=== PATIENT | male | born 1950 | race Caucasian/White ===

== ENCOUNTER 2019-05-18 01:16 | Outpatient (CLI) | payer BC, MEDICARE, SELFPAY ==
--- NOTE | 2019-05-18 14:20 | DI.US_ITS ---
EXAM: US UPPER EXTREMITY VENOUS LT CLINICAL HISTORY: LOCALIZED SWELLING OF LT ARM, R22.32 TECHNIQUE: Ultrasound performed using standard protocol. COMPARISON: SCROTUM US from 10/21/2017 FINDINGS: Ultrasound examination of the deep venous system of the left upper extremity was performed according to the usual protocol. Deep veins appear freely compressible throughout. There is no visible thromb us to the level of the subclavian vein. No superficial thrombus seen. IMPRESSION: negative venous ultrasound left upper extremity.
== END 2019-05-18 01:36 ==
PROVIDERS: PCP Family Medicine; Visit Provider Family Medicine
DX: R22.32 Localized swelling, mass and lump, left upper limb (principal)
CPT/HCPCS: 93971

== ENCOUNTER 2019-08-06 12:33 | Outpatient (REF) | payer MEDICARE, BC, SELFPAY ==
[2019-08-06 13:08] LABS: Anion Gap 9.4 mmol/L (3-11); BUN 23 mg/dL (7-18); CO2 25.6 mmol/L (21.0-32.0); CREATININE 0.96 mg/dL (0.70-1.30); Calcium 8.9 mg/dL (8.5-10.1); Chloride 107 mmol/L (98-107); Glucose 94 mg/dL (74-106); Potassium 4.1 mmol/L (3.5-5.1); Sodium 142 mmol/L (136-145)
[2019-08-07 09:30] LABS: PSA, Screening 0.5 ng/mL (0.0-4.5)
== END 2019-08-06 12:53 ==
LOC: NCHCN 12:33
PROVIDERS: PCP Family Medicine; Visit Provider Family Medicine
DX: N40.0 Benign prostatic hyperplasia without lower urinary tract symptoms (principal); Z12.5 Encounter for screening for malignant neoplasm of prostate; Z13.1 Encounter for screening for diabetes mellitus; I10 Essential (primary) hypertension
CPT/HCPCS: 80048; 84153

== ENCOUNTER 2020-01-10 08:45 | Outpatient (CLI) | payer MEDICARE, BC, SELFPAY ==
--- NOTE | 2020-01-10 09:00 | DI.RAD_ITS ---
EXAM: XR HEEL LT OS CALCIS CLINICAL HISTORY: eval L heel pain. TECHNIQUE: 2D digital imaging was performed. COMPARISON: CR RIGHT FOOT COMPLETE from 06/22/2017 FINDINGS: There is spurring at the Achilles insertion on the calcaneus and adjacent soft tissue swelling. No b leilani erosions are seen. IMPRESSION: Spurring and soft tissue swelling at the distal Achilles tendon.. DATA REPOSITORY: RADIATION DOSE DELIVERED:
== END 2020-01-10 09:05 ==
PROVIDERS: PCP Family Medicine; Referring Provider Family Medicine; Visit Provider Student in an Organized Health Care Education/Training Program
DX: M79.672 Pain in left foot (principal); M79.89 Other specified soft tissue disorders; M65.28 Calcific tendinitis, other site
CPT/HCPCS: 99203; 99214; 73650

== ENCOUNTER 2020-02-23 19:53 | Emergency (ER) | payer MEDICARE, BC, SELFPAY ==
[2020-02-23 19:57] VITALS: BP 118/53; PULSE 45; RESP 16; TEMP 36.4; O2SAT 96
--- NOTE | 2020-02-23 20:05 | ED.GENADUL_ITS ---
Discharge Plan Disposition Patient Disposition: HOME Condition: Stable Discharge Details Chief Complaint: Orthopedic Clinical Impression: Contusion of foot, Ankle sprain Primary Care Provider: Teresa Menchaca ED Provider: Devaughn Brar Home Meds and New Rx's Prescriptions: Continued Centrum Silver 1 EACH tablet 1 tab PO DAILY RF: 0 lisinopril 10 mg tablet 5 mg PO DAILY RF: 0 Discharge Instructions Instructions: Ankle Sprain (ED), Foot Contusion (ED) Additional Instructions: X-rays are unremarkable. No signs of infection. As we discussed, recommend elevation, cool compresses, resting, elevation. Please watch for new or worsening symptoms and return to the ER for any concerns. Medical Decision Making This is a pleasant 69-year-old gentleman who fell from a ladder 9 days ago. Purely given the duration of his symptoms, acute bony abnormality I feel is less likely. Likely he denies any other injury such as striking his head, neck pain, chest pain, shortness of breath, back pain abdominal pain, numbness, tingling, weakness. He was asymptomatic prior to the fall. Had this been present without trauma I would certainly have higher suspicion for DVT but in his case this occurred status post trauma. He has not been resting, elevating, using cool compresses or compression stockings. Certainly appears to be more swelling and edema secondary to trauma. Negative Homans sign. Neuro, vascular, tendon intact. Of note his pulse was in the 50s, upon prior evaluations he appears to typically have bradycardia. The mild erythema-ecchymosis does not reveal any obvious signs of infection. Patient is afebrile. Process with patient. He has no additional questions or concerns and is comfortable having x-ray of ankle and foot. X-ray of ankle and foot obtained and read as no bony abnormality per virtual radiology. Soft tissue swelling present. Discussed findings with patient. He is relieved and has no additional questions or concerns. Denies any splint or crutches. We discussed signs and symptoms of infection and discussed the importance of reevaluation whether through his primary care provider or returning here to the ER. Medical Records Medical records reviewed: Yes I reviewed the patient's medical records. HPI General Mode of arrival: ambulatory . Date/Time Provider Initiated Documentation: 02/23/20 20:02 . Limitations to Documentation: no limitations . Information obtained by: patient . HPI Narrative: This is a 69-year-old gentleman with history of hypertension, presenting to the ER reporting that he fell from a ladder 9 days ago injuring his right lower leg. Fortunately he denies any other injury. He states that his head was approximately 10 feet off the ground, the ladder began to slide, he was able to make it down a couple of rungs and and the ladder fell to the ground. He states that the ladder took the brunt of the fall. He denies striking his head, loss of consciousness, neck pain, chest pain, shortness of breath, abdominal pain, nausea, vomiting, numbness, tingling, weakness. He reports that the pain is in both his foot and ankle, there is swelling and it is discolored. He denies any warmth or fever. Along the medial aspect he did sustain a small abrasion, but he denies any drainage from this. He is not anticoagulated. Related Data Home Medications Medication Instructions Recorded Confirmed Centrum Silver 1 tab PO DAILY 10/15/13 02/23/20 lisinopril 10 mg tablet 5 mg PO DAILY tab 01/10/20 02/23/20 Allergies Allergy/AdvReac Type Severity Reaction Status Date / Time No Known Allergies Allergy Unverified 02/23/20 20:00 General Stated Complaint: Orthopedic NISSA: 4 Review of Systems All systems reviewed & are unremarkable except as noted in HPI and below Constitutional Constitutional: Denies fever(s), Denies headache(s) and Denies weakness ENT Ears, Nose, Mouth, and Throat: Denies headache(s) and Denies neck pain Musculoskeletal Musculoskeletal: Denies neck pain, Denies numbness and Denies tingling Neurologic Neurologic: Denies headache(s), Denies numbness, Denies tingling and Denies weakness [facility] Social History Smoking/Tobacco Use Status: Never Alcohol Intake: current Alcohol Intake frequency: holidays/special occasions only Drug use: Never Do you feel safe at home: Yes Do you feel safe in your relationship?: Yes Exam Const General: cooperative, healthy appearing, comfortable and no acute distress Orientation: alert, awake and oriented x3 HENMT Head: normal to inspection, normocephalic and atraumatic Mouth: moist mucous membranes Eyes Conjunctivae: conjunctivae normal Sclera: sclerae normal Neck Neck: normal visual inspection, full ROM, trachea midline, supple and nontender Chest Chest: abnormal palpation of chest wall Resp Effort & Inspection: normal respiratory effort and able to speak in complete sentences Cardio Rate: bradycardic (56) Rhythm: regular rhythm GI Palpation: soft and nontender Back/Spine/Pelvis Back: No back tenderness Skin General skin exam: no rashes or lesions noted Neuro General: patient alert, patient awake, patient oriented x3, moves all extremities and no focal motor deficits Gait: antalgic Motor: muscle tone normal throughout and strength 5/5 throughout Sensory Exam: no sensory deficits noted Extrem Other: Right ankle and foot with diffuse mild swelling, discomfort, mild erythema-ecchymosis. Along the medial aspect there is a small abrasion which is scabbed over, no signs of infection. There is no warmth, drainage, signs of secondary infection. No lymphangitic streaking. Negative Homans sign. There is diffuse discomfort across the ankle and foot but there is no bony point tenderness. Normal capillary refill and normal dorsalis pedal pulse. There is distinct ecchymosis over the third toe however no point discomfort. Neuro, vascular, tendon intact Psych Appearance: grossly normal Mental Status: mental status grossly normal Course Vital Signs Vital signs: Vital Signs Temperature 36.4 C L 02/23/20 19:57 Pulse 45 L 02/23/20 19:57 Respiratory Rate 16 02/23/20 19:57 Blood Pressure 118/53 L 02/23/20 19:57 Pulse Oximetry 96 02/23/20 19:57 Temperature 36.4 C L 02/23/20 19:57 Temperature Source Temporal Artery Scan 02/23/20 19:57 Pulse 45 L 02/23/20 19:57 Respiratory Rate 16 02/23/20 19:57 Respiratory Effort Non-Labored 02/23/20 20:02 Blood Pressure 118/53 L 02/23/20 19:57 Blood Pressure Position Sitting 02/23/20 19:57 Pulse Oximetry 96 02/23/20 19:57 Oxygen Delivery Method Room Air 02/23/20 19:57 Oxygen Flow Rate 0 02/23/20 19:57 Pain Level 6 02/23/20 19:57
--- NOTE | 2020-02-23 20:15 | DI.RAD_ITS ---
EXAM: XR ANKLE RT COMPLETE CLINICAL HISTORY: fall off ladder 9 days ago TECHNIQUE: COMPARISON: CR XR HEEL LT OS CALCIS from 01/10/2020 CR,XR XR FOOT RT COMPLETE from 02/23/2020 FINDINGS: Three views of the ankle three views of the foot were obtained. There is prior surgical procedure at the Achilles attachment the calcaneus with a an anchor screw in place. There are mild degenerative changes involving the joints of the ankle. The ankle mortise is well maintained. There is no eviden ce of a fracture involving the ankle or foot. IMPRESSION:
--- NOTE | 2020-02-23 20:45 | DI.VRAD_ITS ---
PROCEDURE INFORMATION: Exam: XR Right Ankle Exam date and time: 02/23/2020 8:36 PM Age: 69 years old Clinical indication: Other: Fall off ladder +9 days ago TECHNIQUE: Imaging protocol: XR Right ankle. Views: 3 or more views. COMPARISON: CR RIGHT FOOT COMPLETE 06/22/2017 8:56 AM FINDINGS: Bones/joints: No fracture. No dislocation. Soft tissues: Soft tissue swelling at the ankle. Previous Achilles tendon reattachment surgery. IMPRESSION: 1. Soft tissue swelling. 2. No fracture or dislocation. 3. Previous Achilles tendon reattachment. Dictated and Authenticated by: Demetrius Lema MD. Ordering:HANDY Cantor MD
--- NOTE | 2020-02-23 20:46 | DI.VRAD_ITS ---
PROCEDURE INFORMATION: Exam: XR Right Foot Complete Exam date and time: 02/23/2020 8:37 PM Age: 69 years old Clinical indication: Other: Fall off ladder +9 days ago TECHNIQUE: Imaging protocol: XR Right foot. Views: 3 or more views. COMPARISON: CR RIGHT FOOT COMPLETE 06/22/2017 8:56 AM FINDINGS: Bones/joints: No fracture or dislocation. Soft tissues: Soft tissue swelling of the posterior foot and ankle region. No soft tissue foreign body. Previous Achilles tendon reattachment surgery. IMPRESSION: 1. Soft tissue swelling. 2. No acute fracture or dislocation. Dictated and Authenticated by: Demetrius Lema MD. Ordering:HANDY Cantor MD
[2020-02-23 21:10] VITALS: BP 99/68; PULSE 49; RESP 16; O2SAT 96
== END 2020-02-23 21:10 | disposition home or self-care (01) ==
PROVIDERS: Emergency Provider Physician Assistant; PCP Family Medicine
DX: S90.31XA Contusion of right foot, initial encounter (principal); S93.401A Sprain of unspecified ligament of right ankle, initial encounter; W11.XXXA Fall on and from ladder, initial encounter; I10 Essential (primary) hypertension
CPT/HCPCS: 99284; 73610; 73630; 99283

== ENCOUNTER → 2020-09-08 07:56 | Outpatient (BNVA) | payer MEDICARE, BC, SELFPAY | PROVIDERS: PCP Family Medicine; Referring Provider Family Medicine; Visit Provider Student in an Organized Health Care Education/Training Program | DX: M65.28 Calcific tendinitis, other site (principal) | CPT/HCPCS: 99214 ==

== ENCOUNTER 2020-09-23 06:17 | Day surgery (SDC) | payer MEDICARE, BC, SELFPAY ==
[2020-09-23 06:33] VITALS: BP 141/91; PULSE 51; RESP 16; TEMP 36.3; O2SAT 97
[2020-09-23] MEDS: Lactated Ringers 1,000 ML 80 ML IV (07:13)
--- NOTE | 2020-09-23 07:23 | HPE_ITS ---
Date of service: 09/23/20 Time of Service: 07:23 Assessment and Plan Assessment and plan (1) Calcific Achilles tendinitis of left lower extremity: Status: Acute Assessment and plan: Dell is a 69-year-old who has calcific, chronic, insertional tendinitis of the left Achilles. He has failed conservative options and now desires to proceed with surgical intervention. I reviewed the risk with him in the office in detail he desires to proceed. He is a no changes medical history. His COVID-19 test is negative. We'll proceed with surgical debridement with possible Achilles reattachment today. All questions were answered. History of Present Illness Narrative: Dell is a 69-year-old who has longstanding chronic insertional tend initis with calcific disease about the left heel. He has failed conservative options and now desires to proceed with surgery intervention. Please see the office note for complete details of his clinical history as well as the options that were discussed in detail with Dell. He denies any significant changes to his health. He has no chest pain or shortness of breath. His COVID-19 test is negative. Review of Systems All systems reviewed & are unremarkable except as noted in HPI and below PFSH Medical History Calcific Achilles tendinitis of right lower extremity s/p surgical debridement Hypertension Spermatocele of epididymis, multiple (12/20/17) Urinary frequency Being tx with tamsulosin Surgical History Achilles bursitis or tendinitis Right repaired. History of arthroscopic knee surgery Both knees. Social History Smoking/Tobacco Use Status: Never Smoking risk assessment performed?: Yes Alcohol Intake: current Alcohol Intake frequency: a few times a week Alcohol type: beer, wine and hard liquor Drug use: Never Substance use type: does not use Do you feel safe at home: Yes Do you feel safe in your relationship?: Yes Meds Home Medications and Allergies Allergies Allergy/AdvReac Type Severity Reaction Status Date / Time No Known Allergies Allergy Unverified 09/22/20 09:08 Home Medications Medication Instructions Recorded Confirmed Type Centrum Silver 1 tab PO DAILY 10/15/13 09/23/20 History lisinopril 10 mg tablet 5 mg PO DAILY tab 01/10/20 09/23/20 History tamsulosin 0.4 mg PO DAILY 09/22/20 09/23/20 History Exam Const General: cooperative Nutritional Appearance: average body habitus Resp Effort & Inspection: normal respiratory effort Auscultation: clear to auscultation bilaterally Cardio Rate: bradycardic Rhythm: regular rhythm Results Last Vital Signs Temp 36.3 C L 09/23/20 06:33 Pulse 51 L 09/23/20 06:33 Resp 16 09/23/20 06:33 BP 141/91 H 09/23/20 06:33 Pulse Ox 97 09/23/20 06:33
--- NOTE | 2020-09-23 07:45 | W.PM.DSUDISC ---
Documented by User: JAY Flowers 09/23/20 07:50 Discharge Plan Disposition Patient Disposition: HOME Condition: Good Discharge Details Reason For Visit: Debridement Left Heel, Calcific Tendonitis Attending Provider: Ric Aguila Primary Care Provider: Teresa Menchaca Home Meds and New Rx's Prescriptions: New hydrocodone-acetaminophen 5-325 mg tablet 1 tab PO Q6H PRNQty: 5 RF: 0 aspirin 81 mg tablet,delayed release (DR/EC) 81 mg PO BID Qty: 60 RF: 0 acetaminophen [Tylenol Extra Strength] 500 mg tablet 500 mg PO Q6H PRNQty: 90 RF: 0 ibuprofen 600 mg tablet 600 mg PO TID Qty: 90 RF: 0 Continued Centrum Silver 1 EACH tablet 1 tab PO DAILY RF: 0 lisinopril 10 mg tablet 5 mg PO DAILY RF: 0 tamsulosin 0.4 mg Capsule 0.4 mg PO DAILY RF: 0 Discharge Instructions Additional Instructions: Ankle Achilles Debridement Discharge Instructions Activity: You are NON WEIGHT BEARING. You should keep the leg elevated as much as possible. You may wiggle your toes and move your hip and knee. Dressings: You should keep your splint clean and dry. Do NOT get wet or dirty. If you have issues with your splint, please call the office at [phone] or the hospital after hours. Medications: - You should take Tylenol and Ibuprofen around the clock for baseline pain. - You have been prescribed a stronger narcotic, Hydrocodone, for breakthrough pain. - You should take a Baby Aspirin (81mg) twice a day for blood clot prevention. Follow-up: 2 weeks Referrals: Ric Aguila MD [ [facility] STAFF PHYSICIAN] - Equipment/Supplies: Non-Weight Bearing Crutches Activity:: Elevate Remove Dressings/Wound Care:: Do Not Remove Shower/Bathe:: Cover Diet:: As Tolerated Discharge Orders Discharge Orders: Discharge Order (Routine); Ordered 09/23/20 Ordered By: Oliva Piedra DS: Diagnosis Discharge Diagnosis (1) Calcific Achilles tendinitis of left lower extremity: Status: Acute Documented by User: Ric Aguila MD 09/23/20 09:38 Discharge Plan Disposition Patient Disposition: HOME Condition: Good Discharge Details Reason For Visit: Debridement Left Heel, Calcific Tendonitis Attending Provider: Ric Aguila Primary Care Provider: Teresa Menchaca Home Meds and New Rx's Prescriptions: New hydrocodone-acetaminophen 5-325 mg tablet 1 tab PO Q6H PRNQty: 5 RF: 0 aspirin 81 mg tablet,delayed release (DR/EC) 81 mg PO BID Qty: 60 RF: 0 acetaminophen [Tylenol Extra Strength] 500 mg tablet 500 mg PO Q6H PRNQty: 90 RF: 0 ibuprofen 600 mg tablet 600 mg PO TID Qty: 90 RF: 0 Continued Centrum Silver 1 EACH tablet 1 tab PO DAILY RF: 0 lisinopril 10 mg tablet 5 mg PO DAILY RF: 0 tamsulosin 0.4 mg Capsule 0.4 mg PO DAILY RF: 0 Discharge Instructions Additional Instructions: Ankle Achilles Debridement Discharge Instructions Activity: You are NON WEIGHT BEARING. You should keep the leg elevated as much as possible. You may wiggle your toes and move your hip and knee. Dressings: You should keep your splint clean and dry. Do NOT get wet or dirty. If you have issues with your splint, please call the office at [phone] or the hospital after hours. Medications: - You should take Tylenol and Ibuprofen around the clock for baseline pain. - You have been prescribed a stronger narcotic, Hydrocodone, for breakthrough pain. - You should take a Baby Aspirin (81mg) twice a day for blood clot prevention. Follow-up: 2 weeks Referrals: Ric Aguila MD [ [facility] STAFF PHYSICIAN] - Equipment/Supplies: Non-Weight Bearing Crutches Activity:: Elevate Remove Dressings/Wound Care:: Do Not Remove Shower/Bathe:: Cover Diet:: As Tolerated Discharge Orders Discharge Orders: Discharge Order (Routine); Ordered 09/23/20 Ordered By: Oliva Piedra
[2020-09-23] MEDS: ceFAZolin 2 GM/50 ML BAG IVPB (08:01)
[2020-09-23] MEDS: Bupivacaine 0.25% Pres-Free 30 ML VIAL (08:25)
[2020-09-23 09:40] VITALS: BP 115/61; PULSE 46; RESP 17; TEMP 36.3; O2SAT 99
[2020-09-23 09:45] VITALS: BP 112/67; PULSE 47; RESP 14; TEMP 36.3; O2SAT 98
[2020-09-23 09:50] VITALS: BP 117/72; PULSE 49; RESP 16; TEMP 36.3; O2SAT 98
[2020-09-23 10:05] VITALS: BP 125/56; PULSE 48; RESP 15; TEMP 36.1; O2SAT 98
[2020-09-23] MEDS: oxyCODONE 5 MG TAB PO (10:46)
[2020-09-23 10:49] VITALS: BP 120/78; PULSE 46; RESP 16; TEMP 36.1; O2SAT 99
--- NOTE | 2020-09-24 06:47 | W.PM.OP ---
Date of service: 09/23/20 Time of Service: 09:47 Operative Note Operative Note DATE OF PROCEDURE: 09/23/20 PRE-OP DIAGNOSIS: Insertional Calcific Tendinitis of Achilles Tendon POST-OP DIAGNOSIS: same PROCEDURE: Left Achilles Tendon debridement and calcaneus ostectomy with Apollo resection and reattachment of Achilles to the calcaneus. SURGEON: Ric Aguila EVENT PLANNING INTERN: Oliva Piedra ANESTHESIA TYPE: General LMA/ETT Refer to Anesthesia Record ESTIMATED BLOOD LOSS: 20 PATHOLOGY: none sent TOURNIQUET TIME: 0 COMPLICATIONS: None Patient was transported to: PACU Indications: Dell is a 69 year old male who has had persistent pain about the heel. Clinical evaluation and x-rays demonstrated clear calcific tendinitis of the Achilles insertion. Dell has failed a host of conservative options but continues to have pain and difficulty with shoe wear. Therefore, I offered operative intervention in the form of Achilles debridement, bony prominence resection, and Achilles tendon repair as indicated. I reviewed the risk of the procedure to include bleeding, infection, pain, stiffness, damage to nerves and vessels, weakness, Achilles rerupture or retear, wound healing complications. Despite these risk,he elected to proceed. Findings: There were notable calcific prominence of the calcaneal tuberosity which were resected and the calcaneus smooth and Achilles repaired back down to the calcaneus. Procedure Description: Dell was greeted in the preoperative holding area. Identity was confirmed the correct side was identified and marked. Consent was reviewed the patient and signed. History of physical was updated. He was taken to the operating room. A general anesthetic was administered and then the patient was placed into the prone position. Chest rolls were placed to well-padded the chest and allow for chest expansion. The arms were placed in the 9090 position with all bony prominences well-padded. There was gel pad placed underneath the knees and a prone ramp was placed underneath the operative leg. No tourniquet was used. Prophylactic antibiotics in the form of cefazolin were given. A timeout was performed for safe surgery. The proposed surgical site was then injected with 0.25% bupivacaine. A midline incision was then made overlying the Achilles tendon and its insertion on the calcaneus. This incision was taken down all the way to the peritenon of the Achilles tendon and its insertion on the calcaneus. Full-thickness flaps were then elevated medially and laterally to better expose Achilles tendon and its insertion. A midline incision was then made within the Achilles tendon. The tendon was elevated off of the calcaneus medially and laterally leaving some bands at the far reaches for later tensioning of the Achilles tendon. Calcific deposits from in the tendon were then removed sharply. Prominences over the calcaneal tuberosity were also removed with a rongeur. I took a chisel to then resect any Apollo deformity. This was checked by dorsiflexing the foot and inspecting for any impingement of the calcaneal prominence onto the Achilles tendon I also used a chisel to chamfer the medial lateral prominences of the calcaneal tuberosity as well. Once this was completed I then inspected the calcaneal insertion for any remnant sharp prominences or calcifications. A rasp was also used to smooth this down fully until there is no prominence projecting either posteriorly, medially, laterally. I made sure that the left attachments of the Achilles tendon to help guide the repair. I then placed a single 5.0 mm Mitek Fastin anchor into the superior margin of the calcaneal tuberosity. I placed a locking Krak?w type suture into each side of the Achilles tendon with 1 limb of the suture from the anchor. The extra limb of the suture was then passed through the tendon wants to serve as a stephanie. Once these both were passed I was able to shuttle the tendon back down to the bone by pulling on the free limb of the suture. The sutures were then tied which reapproximated the Achilles tendon down to the tuberosity quite nicely. I also took a #2 FiberWire to reapproximate the tendon split in the Achilles through his entire length. Using the tails of the suture as well as the remnant tails from the previously tied sutures, I incorporated these into a DermaMedicstec Healix 4.75 mm knotless anchor. This reapproximated the tendon over the entire footprint of the calcaneus. The suture limbs were then cut. The periphery of the Achilles tendon slit was inspected and any residual split of the tendon was reapproximated. The wounds and thoroughly irrigated. The deep tissues were anesthetized with 0.2% bupivacaine. The deep tissue was closed with 3-0 Vicryl followed by a 4-0 nylon. Xerofradha, 4 x 4, ABD, web roll was applied to the foot in a short leg splint was placed. The patient was then placed into the supine position. There is no notable complications from the prone positioning of the surgery. Dell was in transition back to the hospital stretcher in a stable condition. The procedure was tolerated well and the patient was transferred back to the PACU in stable condition.
== END 2020-09-23 12:00 | disposition home or self-care (01) ==
PROVIDERS: PCP Family Medicine; Visit Provider Student in an Organized Health Care Education/Training Program
PROC: (CPT 27654; principal; 2020-09-23 07:45)
PROC: (CPT 27650; 2020-09-23 07:45)
DX: M76.61 Achilles tendinitis, right leg (principal); I10 Essential (primary) hypertension; R35.0 Frequency of micturition
CPT/HCPCS: 27654; 27650; C1713; NC; E0114; J0690; J1100; J1885; J2001; J2405; J2704

== ENCOUNTER → 2020-10-06 08:58 | Outpatient (BNVA) | payer MEDICARE, BC, SELFPAY | PROVIDERS: PCP Family Medicine; Referring Provider Family Medicine; Visit Provider Physician Assistant Surgical | DX: Z47.89 Encounter for other orthopedic aftercare (principal); M65.28 Calcific tendinitis, other site ==

== ENCOUNTER → 2020-10-20 10:21 | Outpatient (BNVA) | payer MEDICARE, BC, SELFPAY | PROVIDERS: PCP Family Medicine; Referring Provider Family Medicine; Visit Provider Urology | DX: N40.1 Benign prostatic hyperplasia with lower urinary tract symptoms (principal); R35.1 Nocturia | CPT/HCPCS: 81003; 99214 ==

== ENCOUNTER → 2020-11-03 09:19 | Outpatient (BNVA) | payer MEDICARE, BC, SELFPAY | PROVIDERS: PCP Family Medicine; Referring Provider Family Medicine; Visit Provider Student in an Organized Health Care Education/Training Program | DX: Z47.89 Encounter for other orthopedic aftercare (principal); M65.28 Calcific tendinitis, other site ==

== ENCOUNTER → 2020-12-02 09:30 | Outpatient (BNVA) | payer MEDICARE, BC, SELFPAY | PROVIDERS: PCP Family Medicine; Referring Provider Family Medicine; Visit Provider Urology | DX: R39.15 Urgency of urination (principal); R35.1 Nocturia | CPT/HCPCS: 99213 ==

== ENCOUNTER → 2020-12-15 09:48 | Outpatient (BNVA) | payer MEDICARE, BC, SELFPAY | PROVIDERS: PCP Family Medicine; Referring Provider Family Medicine; Visit Provider Student in an Organized Health Care Education/Training Program | DX: Z47.89 Encounter for other orthopedic aftercare (principal); M65.28 Calcific tendinitis, other site ==

== ENCOUNTER → 2021-01-16 08:28 | Outpatient (BNVA) | payer MEDICARE, BC, SELFPAY | PROVIDERS: PCP Family Medicine; Referring Provider Family Medicine; Visit Provider Physical Therapy Assistant | DX: Z12.11 Encounter for screening for malignant neoplasm of colon (principal) ==

== ENCOUNTER 2021-01-30 09:58 | Day surgery (SDC) | payer MEDICARE, BC, SELFPAY ==
[2021-01-30 10:19] VITALS: BP 149/96; PULSE 49; RESP 16; TEMP 36.5; O2SAT 98
[2021-01-30] MEDS: Lactated Ringers 1,000 ML 80 ML IV (10:38)
--- NOTE | 2021-01-30 10:50 | W.ANESPRE ---
General Info Date of Service Date Performed: 01/30/21 Height: 6 ft 2 in Weight: 91.2 kg Body Mass Index (BMI): 25.8 Surgical Procedure: Operation Date: 01/30/21 10:20 Proposed Procedures Side Surgeon pablo Rivas, DO Meds Allergies and Home Medications Allergies Allergy/AdvReac Type Severity Reaction Status Date / Time No Known Allergies Allergy Verified 01/30/21 10:15 Home Medication Medication Instructions Recorded Centrum Silver 1 tab PO DAILY 10/15/13 lisinopril 10 mg tablet 5 mg PO DAILY tab 01/10/20 acetaminophen [Tylenol Extra 500 mg PO Q6H PRN #90 tab 09/23/20 Strength] ibuprofen 600 mg PO TID #90 tab 09/23/20 latanoprost 0.005 % eye drops 1 drp OPHTHALMIC (EYE) DAILY 10/15/20 bisacodyl 5 mg tablet,delayed 5 mg PO ONCE #4 tab 01/16/21 release polyethylene glycol 3350 17 238 g PO ONCE #238 g 01/16/21 gram/dose oral powder Current Visit Medications: Current Medications Generic Name Dose Route Start Last Admin Trade Name Freq PRN Reason Stop Dose Admin Ringer's Solution 1,000 mls @ 80 mls/hr 01/30/21 06:00 01/30/21 10:38 IV 02/28/21 23:59 80 mls/hr INFUSION DARRION Administration IV Miscellaneous Supplies 1 each 01/30/21 06:00 Iv Access IV 02/28/21 23:59 DIRECTED DARRION Ondansetron HCl 4 mg 01/29/21 22:24 Ondansetron 4 Mg/2 Ml Vial IVP Q4H PRN PRN Nausea / Vomiting Sodium Chloride 0 ml 01/30/21 06:00 Normal Saline Flush 10 Ml Syr IV 02/28/21 23:59 PRN PRN Sodium Chloride 0 ml 01/30/21 06:00 Normal Saline 10 Ml Vial IJ 02/28/21 23:59 DIRECTED PRN Sterile Water 0 ml 01/30/21 06:00 Water,Injection,Sterile 10 Ml Vial IJ 02/28/21 23:59 DIRECTED PRN PFSH Active Problems Active Problems: Problem Status Onset Code Calcific Achilles tendinitis of left lower extremity M65.28 Lower urinary tract symptoms (LUTS) R39.9 Sensorineural hearing loss of both ears H90.3 Pain of left heel M79.672 Achilles bursitis or tendinitis M76.60 Medical History Medical History Asthma BPH (benign prostatic hyperplasia) Calcific Achilles tendinitis of right lower extremity s/p surgical debridement Erectile dysfunction Hearing loss History of basal cell carcinoma Hyperlipidemia Hypertension Lower urinary tract symptoms (LUTS) Sensorineural hearing loss of both ears Skin lesion Spermatocele of epididymis, multiple (12/20/17) Urinary frequency Being tx with tamsulosin Surgical History Surgical History Achilles bursitis or tendinitis Right repaired. Calcific Achilles tendinitis of left lower extremity s/p debridement 09/23/2020 History of arthroscopic knee surgery Both knees. Tobacco Smoking/Tobacco Use Status: Never Alcohol Alcohol Intake: current Alcohol intake frequency: a few times a week Alcohol type: beer, wine and hard liquor Substance Use Substance use: Never Substance use type: does not use Vital Signs and Lab Results Vital Signs Most Recent Vital Signs in EMR: Most Recent Vital Signs Temp Pulse Resp BP Pulse Ox 36.5 C 49 L 16 149/96 H 98 01/30/21 10:19 01/30/21 10:19 01/30/21 10:19 01/30/21 10:19 01/30/21 10:19 Lab Results Blood Type / Crossmatch: No Data to Display Complete Blood Count: No Data to Display Complete Metabolic Panel: No Data to Display Liver Function Panel: No Data to Display Coagulation Panel: No Data to Display Cardiac Panel: No Data to Display Arterial Blood Gas: No Data to Display Venous Blood Gas: No Data to Display Pancreas Panel: No Data to Display Thyroid Panel: No Data to Display Infectious Disease: No Data to Display Blood Cultures: No Data to Display Toxicology Panel: No Data to Display Anesthesia Assessment and Plan Anesthesia History Personal History: No History of Anesthesia Complications and Delayed Emergence Family History: No Family History of Anesthesia Complications Exercise Tolerance Exercise Tolerance: Metabolic Equivalents>4 Pertinent Negatives Pertinent Negatives: No Symptoms of GERD, No Major Cardiovascular Symptoms or Complaints and No Major Pulmonary Symptoms or Complaints Cardiac & Pulmonary Exam Cardiac Exam: Normal S1/S2 Heart Sounds Pulmonary Exam: Clear Bilateral Breath Sounds Airway Exam Known Difficult Airway: No Mallampati Class: 2 Mouth Opening: Normal (> 3cm) Thyromental Distance: Greater than 3 cm Neck Range of Motion: Full ROM Neck Circumference: Normal Teeth Condition: Normal Dentition ASA Classification ASA Score: ASA 2 Emergency Case?: No NPO Status NPO Status: NPO Clears >2 hours, Solids >8 hours Anesthesia Plan Resuscitation Status: Full Code Anesthesia Technique: MAC Anesthesia Airway Planned: Natural Airway Monitors Used: Standard Monitors
[2021-01-30 11:57] VITALS: BMI 25.8
--- NOTE | 2021-01-30 12:48 | W.ANESPOSTOP ---
Postoperative Evaluation Date, Time and Location Date Performed: 01/30/21 Time Performed: 13:17 Patient Location: Day Surgery Unit Vital Signs Most Recent Imported Vital Signs: Most Recent Vital Signs Temp Pulse Resp BP Pulse Ox 36.5 C 49 L 16 149/96 H 98 01/30/21 10:19 01/30/21 10:19 01/30/21 10:19 01/30/21 10:19 01/30/21 10:19 Most Recent Manually Entered Vital Signs: Adult Blood Pressure: 134/90 Heart Rate: 64 Respirations: 16 Oxygen Saturation (%): 94 Temperature (C): 36.2 C Pain Score (0-10 Scale): 2 Pain Score Most Recent Pain Score: Most Recent Pain Score Pain Level 0 01/30/21 10:19 Assessment Mental Status: Arousable with meaningful communication Airway and Respiratory Function: Patent airway with normal (patient baseline) respiratory exam Cardiovascular Function: Hemodynamically Stable Hydration Status: Adequately Hydrated Nausea & Vomiting: No Nausea or Vomiting Pain: Pt. Denies Any Pain Peripheral Nerve Block: Patient did not receive a nerve block
--- NOTE | 2021-01-30 12:55 | BOWEL_PTH ---
PATIENT: Dell Rodríguez LOC: [facility] U#:[id number] AGE/SX: 70/M ROOM: RE01/30/[address]: Stephenie Rivas : 1950 BED: DIS: 01/30/2021 SPEC #: [id number] RECD: 01/30/21 13:53 STATUS: [facility]NA CRISTINA RE #: [id number] CLEOPATRA: 01/30/21 12:[address]: Stephenie Rivas DEPT: Surgical Specimen RECD BY: Monae Andrews ENTERED: 01/30/21 13:54 SP TYPE: Bowel OTHR DR: Teresa Menchaca Tissues: 1 - BIOPSY BOWEL Procedures: GROSS AND MICRO LEVEL 4 Comments: [id number]
--- NOTE | 2021-01-30 13:07 | W.COLOREPORT ---
Date of service: 01/30/21 Time of Service: 13:08 Colonoscopy Report Date of procedure: 01/30/21 Pre-op diagnosis general: screening Post-op diagnosis procedure note: other (polyps x2 ) Surgeon: Stephenie Rivas Anesthesia Type: General:No Airway Estimated blood loss (mL): 1 Pathology: other Complications: None Disposition: same day Prep: Miralax/Dulcolax Retraction Time: 30 Procedure Description: After informed consent was obtained the patient was taken to the procedure room and placed in a left decubitous position. Monitors were applied and a time out was done. The patients name, date of , procedure, allergies to medications and metal in their body was reviewed. The patient was then sedated. Once sedated and comfortable a rectal exam was done. External exam was normal. Internal exam revealed a normal sphincter tone and no palpable masses. The scope was then introduced and retrofelexed. No internal hemorrhoids were identified. The scope was then advanced to the cecum w/out difficulty. The TI and appendiceal orifice were identified. The prep was adequate-there was quite a bit of retained material on the otto; this was lavaged extensively. He has a very tortuous colon. Both the right and left flexure are very difficult to navigate & requiring repositioning, and abdominal pressure, which, was best accomplished with direct pressure to the mid-abdomen. He has two, 1 cm flat polyps at 30 and 25 cm. These are both removed with a hot polypectomy forceps with multiple passes. For the polypectomy at 30 cm, x2 endoclips are applied. All specimens are retrieved, and no bleeding is noted. There are no diverticula. The mucosa appears pink and healthy. There are no other abnormalities noted.. The scope was then slowly retracted over 30 minutes back into the rectum. The scope was removed and the patient was woken up and taken back to Same day surgery in stable condition. The patient tolerated the procedure well and there were no immediate complications. Follow up: The patient should follow up in 3-5 years- path pd, unless they develop changes in bowel habits or other new gastrointestinal complaints.
--- NOTE | 2021-01-30 13:11 | PDOC.DSDIS_ITS ---
Discharge Plan Disposition Patient Disposition: HOME Condition: Good Discharge Details Reason For Visit: colon scope Attending Provider: Stephenie Rivas Primary Care Provider: Teresa Menchaca Home Meds and New Rx's Prescriptions: Continued latanoprost 0.005 % drops 1 drp ophthalmic (eye) DAILY RF: 0 Centrum Silver 1 EACH tablet 1 tab PO DAILY RF: 0 lisinopril 10 mg tablet 5 mg PO DAILY RF: 0 acetaminophen [Tylenol Extra Strength] 500 mg tablet 500 mg PO Q6H PRNQty: 90 RF: 0 ibuprofen 600 mg tablet 600 mg PO TID Qty: 90 RF: 0 Discontinued polyethylene glycol 3350 17 gram/dose powder 238 g PO ONCE Qty: 238 RF: 0 bisacodyl [Dulcolax (bisacodyl)] 5 mg tablet,delayed release (DR/EC) 5 mg PO ONCE Qty: 4 RF: 0 Discharge Instructions Additional Instructions: DSU Colonoscopy Post- Op Instructions Instructions for Everyone who is given Anesthesia: For your safety, please do the following for the next twenty-four (24) hours: *Do Not operate a motor vehicle (car, truck, motorcycle, etc.) *Do Not drink alcoholic beverages or use any recreational drugs for the first 24 hours or while taking pain medications. The medications in your body may have a reaction that can be dangerous. *Do Not make any important decisions or sign any important papers. Findings: x2 medium polyps -NO: ASA/NSAID's or Fish oil/vit E for 5 days. Follow up: repeat in 3-5 yrs My office will send a letter in 2-3 wks w/ the results of the pathology and when to repeat the colonoscopy. 1. No lifting over 20 pounds or strenuous activity for the first 24 hours after your procedure. After 24 hours there are no restrictions on your activity but you may feel fatigued for a few days. 2. After you arrive home you may have a light meal and return to your normal diet as you can tolerate it without feeling sick to your stomach. 3. You may have a bloated, gaseous feeling in your belly (abdomen) after a colonoscopy. Passing gas and belching will help. Walking or lying down on your left side with your knees flexed may relieve the discomfort. Call the office at [phone] (Office) or [phone] (Hospital) right away if you notice any of the following: a.Vomiting of blood or ?coffee ground stools?. b.Rectal bleeding 1Tbsp, blood clots or continuous bleeding. c.Severe belly (abdominal) pain. d.A hard distended belly (abdomen) and an inability to pass gas. 4. Please don?t expect to have a normal BM (bowel movement) for 2-3 days after your procedure. 5. If there are questions regarding the findings of your procedure, please contact your doctor 6. If you are unable to contact your doctor with a problem, contact the hospital at [phone]. 7. Continue all your regular medications unless directed otherwise. I understand the above instructions and have no questions. Signature of Patient or Adult Escort Name of Responsible Adult Escort Signature of Nurse Date/Time Stand Alone Forms: Anesthesia Discharge Inst., Colonoscopy Post Instructions Activity:: see above Diet:: see above Discharge Orders Discharge Orders: Discharge Order (Routine); Ordered 01/29/21 Ordered By: Stephenie Rivas Discharge Data Discharge Date/Time-TO BE ENTERED AT DEPARTURE: 01/30/21 14:35 Discharge Comment: Ambulated to lobby to for transport with RN. DS: Diagnosis Discharge Diagnosis (1) Adenomatous polyps: Status: Acute
--- NOTE | 2021-01-30 13:11 | ENDO_ITS ---
Date of service: 01/30/21
--- NOTE | 2021-01-30 13:11 | W.PM.ENDDOP ---
Date of service: 01/30/21
[2021-01-30 13:13] VITALS: BP 130/90; PULSE 51; RESP 16; TEMP 36.1; O2SAT 98
[2021-01-30 13:17] VITALS: BP 134/90; PULSE 64; RESP 16; TEMPC 36.2; O2SAT 94
[2021-01-30 13:43] VITALS: BP 129/92; PULSE 57; RESP 18; TEMP 36.4; O2SAT 98
== END 2021-01-30 14:35 | disposition home or self-care (01) ==
PROVIDERS: PCP Family Medicine; Visit Provider Surgery
PROC: 0DJD8ZZ Inspection of Lower Intestinal Tract, Via Natural or Artificial Opening Endoscopic (ICD-10-PCS; CPT 45378; principal; 2021-01-30 10:15)
DX: Z12.11 Encounter for screening for malignant neoplasm of colon (principal); D12.5 Benign neoplasm of sigmoid colon; I10 Essential (primary) hypertension; J45.909 Unspecified asthma, uncomplicated; N40.0 Benign prostatic hyperplasia without lower urinary tract symptoms
CPT/HCPCS: 45384; 45385; 88305

== ENCOUNTER 2021-08-24 15:39 | Outpatient (REF) | payer OTHER, SELFPAY ==
[2021-08-24 15:15] LABS: Anion Gap 8.5 mmol/L (3-11); BUN 25 mg/dL (7-18); CO2 26.5 mmol/L (21.0-32.0); CREATININE 1.2 mg/dL (0.70-1.30); Calcium 9.1 mg/dL (8.5-10.1); Chloride 106 mmol/L (98-107); Estimated GFR 59.68 (mL/min/1.73m2); Glucose 90 mg/dL (74-106); Potassium 4.6 mmol/L (3.5-5.1); Sodium 141 mmol/L (136-145)
[2021-08-24 15:41] LABS: Calculated LDL 127 mg/dL (<100); Cholesterol 198 mg/dL (<200); HDL Cholesterol 60 mg/dL (40-60); Triglyceride 57 mg/dL (<150)
== END 2021-08-24 15:40 | disposition home or self-care (01) ==
LOC: NCHCN 15:39
PROVIDERS: PCP Family Medicine; Visit Provider Family Medicine
DX: I10 Essential (primary) hypertension (principal); E78.5 Hyperlipidemia, unspecified
CPT/HCPCS: 80048; 80061

== ENCOUNTER → 2021-09-15 13:08 | Outpatient (BNVA) | payer OTHER, SELFPAY | PROVIDERS: PCP Family Medicine; Referring Provider Family Medicine; Visit Provider Surgery | DX: K40.91 Unilateral inguinal hernia, without obstruction or gangrene, recurrent (principal) | CPT/HCPCS: 99203; 99214 ==

== ENCOUNTER 2021-11-02 02:06 | Outpatient (CLI) | payer OTHER, SELFPAY ==
[2021-11-02 09:33] LABS: Source Nasal/Nares
[2021-11-02 14:40] LABS: COVID-19 PCR Negative (Negative)
== END 2021-11-02 02:07 | disposition home or self-care (01) ==
LOC: LBO 02:06
PROVIDERS: PCP Family Medicine; Visit Provider Surgery
DX: Z20.822 Contact with and (suspected) exposure to COVID-19 (principal); Z01.818 Encounter for other preprocedural examination
CPT/HCPCS: 87635; U0005

== ENCOUNTER 2021-11-04 06:24 | Day surgery (SDC) | payer OTHER, SELFPAY ==
[2021-11-04] VITALS (9 sets, daily range): BP systolic 110–134; BP diastolic 50–87; PULSE 45–58; RESP 12–24; TEMP 36.2–36.6; O2SAT 95–99; BMI 27.6
--- NOTE | 2021-11-04 06:23 | W.PREOPHP ---
Assessment and Plan Assessment and plan (1) Recurrent simple right inguinal hernia: Status: Acute Assessment and plan: Mr. Rodríguez is a pleasant 70-year-old gentleman with a recurrent right inguinal hernia which is reducible.? He is having some increased pain due to the lifting he has been doing.? We had a long discussion about the possibility of chronic pain.? We reviewed other risks and benefits including infection, injury to the nerve, injury to underlying bowel.? We discussed pain control with a nerve block done by anesthesia preoperatively as well as Tylenol and ibuprofen postoperatively. Risks, benefits and complications have been reviewed. Complications include but are not limited to bleeding, infection, injury to vas, vessels and nerves, injury to bowel and adverse reaction to medications. Questions were entertained and answered to their satisfaction and they wished to proceed. Right inguinal hernia repair with mesh History of Present Illness Narrative: Mr. Rodríguez is a pleasant 70-year-old gentleman who comes in today to discuss a hernia repair.? He tells me that he has had bilateral inguinal hernia repairs in the past.? Last time was many years ago when his daughter was around 3 years old.? He noticed a recurrence about a year ago but this winter with having to carry wood it has become more uncomfortable.? He can see a bulge now.? He denies any changes in his bowel habits or difficulty passing stool.? He denies issues with urination.? He did not have any issues with anesthesia in the past.? He cannot remember whether he had mesh placed.? Patient had concerns about the mesh and the possibility of chronic pain.? We had a long discussion about reasons for chronic pain which included injury to the nerve or scar tissue that caused pain due to the stiffness.? Discussed things that I could do if he does develop chronic pain which would include injections with Kenalog as well as physical therapy with ultrasound.? I showed him a piece of mesh. right inguinal Yes heavy lifting denies chills, constipation, cramping, diarrhea, fever(s), nausea, vomiting or other There have been no changes in his health since he was last seen in the office Review of Systems All systems reviewed & are unremarkable except as noted in HPI and below PFSH All Active Problems Recurrent simple right inguinal hernia (Acute) Medical History Adenomatous polyps Asthma BPH (benign prostatic hyperplasia) Calcific Achilles tendinitis of right lower extremity s/p surgical debridement Erectile dysfunction Hernia History of basal cell carcinoma Hyperlipidemia Hypertension Lower urinary tract symptoms (LUTS) Osteoarthritis Pain of left heel Recurrent oral herpes simplex Sensorineural hearing loss of both ears Skin lesion Spermatocele of epididymis, multiple (12/20/17) Urinary frequency Being tx with tamsulosin Surgical History Achilles bursitis or tendinitis Right repaired. Calcific Achilles tendinitis of left lower extremity s/p debridement 09/23/2020 History of arthroscopic knee surgery Both knees. History of colonoscopy with polypectomy (~01/30/21) History of left inguinal hernia repair Hx of right inguinal hernia repair Social History Smoking/Tobacco Use Status: Never Smoking risk assessment performed?: Yes Alcohol Intake: current Alcohol Intake frequency: a few times a week Alcohol type: beer, wine and hard liquor Drug use: Never Substance use type: does not use Current gender identity: male Do you feel safe at home: Yes Do you feel safe in your relationship?: Yes Meds Allergies and Home Medications Allergies Allergy/AdvReac Type Severity Reaction Status Date / Time No Known Allergies Allergy Verified 11/04/21 06:42 Home Medications Medication Instructions Recorded Confirmed Type edvendwy-uzm-[id number] acid 0.4 1 tab PO DAILY 10/15/13 11/04/21 History mg-lycopene 300 mcg-lutein 250 mcg tablet (Centrum Silver) lisinopril 10 mg tablet 5 mg PO DAILY tab 01/10/20 11/04/21 History acetaminophen 500 mg tablet 500 mg PO Q6H PRN #90 tab 09/23/20 11/04/21 Rx (Tylenol Extra Strength) ibuprofen 600 mg tablet 600 mg PO TID #90 tab 09/23/20 11/04/21 Rx latanoprost 0.005 % eye drops 1 drp OPHTHALMIC (EYE) DAILY 10/15/20 11/04/21 History atorvastatin 20 mg tablet 20 mg PO DAILY 09/11/21 11/04/21 History omeprazole 20 mg capsule,delayed 20 mg PO DAILY 09/11/21 11/04/21 History release propylene glycol 0.6 % eye drops 1 drp OPHTHALMIC (EYE) DAILY PRN 09/11/21 11/04/21 History (Systane Balance) Exam Const General: cooperative, comfortable and no acute distress Orientation: alert and oriented x3 HENMT Head: normocephalic and atraumatic Resp Effort & Inspection: normal respiratory effort Auscultation: clear to auscultation bilaterally Cardio Rate: regular rate Rhythm: regular rhythm GI Inspection: normal to inspection Palpation: soft, no hepatosplenomegaly, hernia (right inguinal hernia) and nontender
--- NOTE | 2021-11-04 06:26 | W.PM.OP ---
Date of service: 11/04/21 Time of Service: 08:25 Operative Note Operative Note DATE OF PROCEDURE: 11/04/21 PRE-OP DIAGNOSIS: recurrent right inguinal hernia POST-OP DIAGNOSIS: same PROCEDURE: Right inguinal hernia repair with mesh SURGEON: Racquel Henderson ESL INSTRUCTIONAL ASSISTANT: Stefani Wilks ANESTHESIA TYPE: General LMA/ETT and Other (TAP block) Refer to Anesthesia Record ESTIMATED BLOOD LOSS: 25 PATHOLOGY: none sent COMPLICATIONS: None Patient was transported to: PACU Patient's condition: stable Implants: PERFix: REF- [id number] LOT- [id number] 2025-12-19 Indications: Mr. Rodríguez is a pleasant 70-year-old gentleman with a recurrent right inguinal hernia which is reducible.? He is having some increased pain due to the lifting he has been doing.? We had a long discussion about the possibility of chronic pain.? We reviewed other risks and benefits including infection, injury to the nerve, injury to underlying bowel.? We discussed pain control with a nerve block done by anesthesia preoperatively as well as Tylenol and ibuprofen postoperatively. Risks, benefits and complications have been reviewed. Complications include but are not limited to bleeding, infection, injury to vas, vessels and nerves, injury to bowel and adverse reaction to medications. Questions were entertained and answered to their satisfaction and they wished to proceed. Right inguinal hernia repair with mesh Findings: Large indirect and direct hernia No old mesh was identified Procedure Description: After informed concent was obtained the patient was taken to the operating room and placed in a supine position. Monitors and SCDs were applied and a timeout was done. The patient's name, date of , procedure type, procedure site, allergies to medications, preoperative antibiotic, and DVT prophylaxis were all reviewed. Fire risk was assessed. Next anesthesia did a tap block on the right side under ultrasound guidance. Please see their separate dictation. Once anesthesia was done the abdomen was prepped and draped in a sterile surgical fashion. 0.5% Marcaine was injected into the dermis, along his old scar, in the right lower quadrant. An incision was made with a 10 blade in the right lower quadrant. Dissection was done with cautery through the subcutaneous tissues and Rakesh's fascia down to the external oblique fascia. The external ring was identified and the external oblique fascia was opened sharply through the external ring. The cut fascia was grasped with hemostats the cord structures were identified and a Pito drain was placed around them. The ilioinguinal nerve was identified and cut. The cremasteric muscle was dissected away from the cord structures using both cautery and blunt dissection. A hernia sac was identified and removed from the cord structures using blunt dissection. The hernia sac was suture ligated and amputated. The remnant was pushed back into the peritoneum. An L plug was placed into the indirect defect and secured with 2-0 proline. A flat piece of mesh was then attached to the lacunar ligament using a 2-0 Prolene double armed suture. The mesh was secured laterally and medially with a 2-0 Prolene, with a running suture. The tails of the mesh were wrapped around the cord structures effectively cinching down the internal ring. Once the mesh was secured the tissues were irrigated with some normal saline. No bleeding was identified. The external oblique fascia was reapproximated using 2-0 Vicryl running suture. The Rakesh's fascia was reapproximated using interrupted 3-0 Vicryl. The dermis was reapproximated with a running 4-0 Vicryl. The skin was cleaned and dried and skin affix was applied. The patient was woken up and taken back to recovery in stable condition. There were no immediate complications. Sponge, instrument and needle counts were correct at the end of the case x2.
--- NOTE | 2021-11-04 06:28 | PDOC.DSDIS_ITS ---
Discharge Plan Disposition Patient Disposition: HOME Condition: Good Discharge Details Reason For Visit: Right inguinal hernia repair Attending Provider: Racquel Henderson Primary Care Provider: Teresa Menchaca Home Meds and New Rx's Prescriptions: Continued latanoprost 0.005 % drops 1 drp ophthalmic (eye) DAILY 0RF atorvastatin 20 mg tablet 20 mg PO DAILY 0RF omeprazole 20 mg capsule,delayed release(DR/EC) 20 mg PO DAILY 0RF Systane Balance 0.6 % drops 1 drp ophthalmic (eye) DAILY PRN0RF Centrum Silver 1 EACH tablet 1 tab PO DAILY 0RF lisinopril 10 mg tablet 5 mg PO DAILY 0RF acetaminophen [Tylenol Extra Strength] 500 mg tablet 500 mg PO Q6H PRNQty: 90 0RF ibuprofen 600 mg tablet 600 mg PO TID Qty: 90 0RF Discharge Instructions Additional Instructions: Activity at Home after surgery: 1. Make sure you walk outside at least 4 times per day 2. You should be able to climb a flight of stairs 3. No driving while in pain or taking pain medications 4. No strenuous activity or heavy lifting for 4 weeks (open surgery) Diet, Nutrition, & wound healin. Avoid alcohol until after you are recovered from your surgery 2. Make sure to eat plenty of lean protein (meat, fish, eggs, cottage cheese, beans) 3. Eat a variety of fruits and vegetables. Eat plenty of high fiber foods to avoid constipation. 4. Drink plenty of liquids to stay hydrated and avoid constipation Pain Medications: 1. Tylenol 650mg every 6 hours as needed and Ibuprofen 600 mg every 6 hours as needed. You may alternate between the 2 medications every 3 hours 2. If a narcotic has been prescribed take as directed only for breakthrough pain For Constipation: 1. Take Milk of Magnesia or MiraLax as needed for constipation Other: 1. You may shower daily. Do not scrub the incisions 2. Do not soak the incisions for 1 week 3. You may alternate ice and heat as needed for pain and swelling Wound Care: 1. Keep the incisions clean and dry Please call our office if you develop: 1. Fevers >101.5 2. Nausea or Vomiting 3. Worsening pain 4. Redness and thick discharge from the wounds If after hours please call the Hospital at and ask to speak to the on-call surgeon Referrals: Racquel Henderson MD [ [facility] STAFF PHYSICIAN] - Activity:: as above Remove Dressings/Wound Care:: Do Not Remove Shower/Bathe:: 24 hours Diet:: As Tolerated Discharge Orders Discharge Orders: Discharge Order (Routine); Ordered 11/04/21 Ordered By: Racquel Henderson DS: Diagnosis Discharge Diagnosis (1) Recurrent simple right inguinal hernia: Status: Acute
[2021-11-04] MEDS: Gabapentin 300 MG CAP 600 MG PO (06:59)
[2021-11-04] MEDS: Celecoxib 200 MG CAP PO (07:00)
[2021-11-04] MEDS: Acetaminophen 500 MG TAB 1000 MG PO (07:00)
--- NOTE | 2021-11-04 07:07 | W.ANESPRE ---
General Info Date of Service Date Performed: 11/04/21 Height: 6 ft 1.5 in Weight: 96.4 kg Body Mass Index (BMI): 27.6 Surgical Procedure: Operation Date: 11/04/21 07:40 Proposed Procedure Side Surgeon p Herniorrhaphy Inguinal w/Mesh Right Racquel Henderson MD Meds Allergies and Home Medications Allergies Allergy/AdvReac Type Severity Reaction Status Date / Time No Known Allergies Allergy Verified 11/04/21 06:42 Home Medication Medication Instructions Recorded loiwfczy-nct-vxlek acid 0.4 1 tab PO DAILY 10/15/13 mg-lycopene 300 mcg-lutein 250 mcg tablet (Centrum Silver) lisinopril 10 mg tablet 5 mg PO DAILY tab 01/10/20 acetaminophen 500 mg tablet 500 mg PO Q6H PRN #90 tab 09/23/20 (Tylenol Extra Strength) ibuprofen 600 mg tablet 600 mg PO TID #90 tab 09/23/20 latanoprost 0.005 % eye drops 1 drp OPHTHALMIC (EYE) DAILY 10/15/20 atorvastatin 20 mg tablet 20 mg PO DAILY 09/11/21 omeprazole 20 mg capsule,delayed 20 mg PO DAILY 09/11/21 release propylene glycol 0.6 % eye drops 1 drp OPHTHALMIC (EYE) DAILY PRN 09/11/21 (Systane Balance) Current Visit Medications: Current Medications Generic Name Dose Route Start Last Admin Trade Name Freq PRN Reason Stop Dose Admin Acetaminophen 1,000 mg 11/04/21 06:00 11/04/21 07:00 Acetaminophen 500 Mg Tab PO 11/04/21 23:59 1,000 mg PREOP DARRION Administration Celecoxib 200 mg 11/04/21 06:00 11/04/21 07:00 Celecoxib 200 Mg Cap PO 11/04/21 23:59 200 mg PREOP DARRION Administration Gabapentin 600 mg 11/04/21 06:00 11/04/21 06:59 Gabapentin 300 Mg Cap PO 11/04/21 23:59 600 mg PREOP DARRION Administration Ringer's Solution 1,000 mls @ 80 mls/hr 11/04/21 06:00 IV 11/21/21 23:59 INFUSION DARRION Cefazolin Sodium/Dextrose 2 gm in 50 mls @ 100 mls/hr 11/04/21 06:00 Ancef Duplex IVPB 11/04/21 23:59 PREOP DARRION Ondansetron HCl 4 mg/ Sodium 52 mls @ 200 mls/hr 11/04/21 06:29 Chloride IVPB Q6H PRN PRN IV Miscellaneous Supplies 1 each 11/04/21 06:00 Iv Access IV 11/21/21 23:59 DIRECTED DARRION Sodium Chloride 0 ml 11/04/21 06:00 Normal Saline Flush 10 Ml Syr IV 11/21/21 23:59 PRN PRN Sodium Chloride 0 ml 11/04/21 06:00 Normal Saline 10 Ml Vial IJ 11/21/21 23:59 DIRECTED PRN Sterile Water 0 ml 11/04/21 06:00 Water,Injection,Sterile 10 Ml Vial IJ 11/21/21 23:59 DIRECTED PRN Tramadol HCl 50 mg 11/04/21 06:29 Tramadol 50 Mg Tab PO Q6H PRN PRN Pain PFSH Active Problems Active Problems: Problem Status Onset Code Recurrent simple right inguinal hernia K40.91 Medical History Medical History Adenomatous polyps Asthma BPH (benign prostatic hyperplasia) Calcific Achilles tendinitis of right lower extremity s/p surgical debridement Erectile dysfunction Hernia History of basal cell carcinoma Hyperlipidemia Hypertension Lower urinary tract symptoms (LUTS) Osteoarthritis Pain of left heel Recurrent oral herpes simplex Sensorineural hearing loss of both ears Skin lesion Spermatocele of epididymis, multiple (12/20/17) Urinary frequency Being tx with tamsulosin Medical History Comments:: screws in R heel Surgical History Surgical History Achilles bursitis or tendinitis Right repaired. Calcific Achilles tendinitis of left lower extremity s/p debridement 09/23/2020 History of arthroscopic knee surgery Both knees. History of colonoscopy with polypectomy (~01/30/21) History of left inguinal hernia repair Hx of right inguinal hernia repair Tobacco Smoking/Tobacco Use Status: Never Alcohol Alcohol Intake: current Alcohol intake frequency: a few times a week Alcohol type: beer, wine and hard liquor Substance Use Substance use: Never Substance use type: does not use Vital Signs and Lab Results Vital Signs Most Recent Vital Signs in EMR: Most Recent Vital Signs Temp Pulse Resp BP Pulse Ox 36.6 C 58 L 18 125/83 96 11/04/21 06:52 11/04/21 06:52 11/04/21 06:52 11/04/21 06:52 11/04/21 06:52 Lab Results Blood Type / Crossmatch: No Data to Display Complete Blood Count: No Data to Display Complete Metabolic Panel: No Data to Display Liver Function Panel: No Data to Display Coagulation Panel: No Data to Display Cardiac Panel: No Data to Display Arterial Blood Gas: No Data to Display Venous Blood Gas: No Data to Display Pancreas Panel: No Data to Display Thyroid Panel: No Data to Display Infectious Disease: Coronavirus (COVID-19)(PCR) Negative (Negative) 11/02/21 08:34 11/02/21 Coronavirus 2019 Source Nasal/Nares 11/02/21 08:34 11/02/21 Blood Cultures: No Data to Display Toxicology Panel: No Data to Display Anesthesia Assessment and Plan Anesthesia History Personal History: No History of Anesthesia Complications Family History: No Family History of Anesthesia Complications Exercise Tolerance Exercise Tolerance: Metabolic Equivalents>4 Pertinent Negatives Pertinent Negatives: No Symptoms of GERD, No Major Cardiovascular Symptoms or Complaints, No Major Pulmonary Symptoms or Complaints and No History of CVA/TIA Cardiac & Pulmonary Exam Cardiac Exam: Normal S1/S2 Heart Sounds Pulmonary Exam: Clear Bilateral Breath Sounds Implantable Cardiac Device Does patient have a Pacemaker or an ICD?: No Airway Exam Known Difficult Airway: No Mallampati Class: 2 Mouth Opening: Normal (> 3cm) Thyromental Distance: Greater than 3 cm Neck Range of Motion: Full ROM Neck Circumference: Normal Teeth Condition: Normal Dentition ASA Classification ASA Score: ASA 2 Emergency Case?: No NPO Status NPO Status: NPO Clears >2 hours, Solids >8 hours Anesthesia Plan Resuscitation Status: Full Code Anesthesia Technique: General Anesthesia Airway Planned: LMA Pain Management: Surgeon and patient request nerve block Monitors Used: Standard Monitors
[2021-11-04] MEDS: Lactated Ringers 1,000 ML 80 ML IV (07:20)
[2021-11-04] MEDS: ceFAZolin 2 GM/50 ML BAG IVPB (07:37)
--- NOTE | 2021-11-04 07:47 | W.ANESNERVE ---
Nerve Block Single Injection Procedure Date and Time Date Performed: 11/04/21 Procedure Start: 07:30 Location Where Procedure Performed Procedure Location: Operating Room Procedure Stop: 07:37 Reason Performed: Postoperative Analgesia Requesting Provider: Racquel Henderson Timeout Performed Timeout Performed: Yes Monitoring Used ECG, Blood Pressure, SpO2, ETCO2 and See EMR for corresponding vital signs Sterility Sterility: Hand Hygiene, Surgical Cap, Surgical Mask, Sterile Gloves and Chlorhexidine Sedation Given During Procedure Sedation Given (Indicate Dose Given): Other: Medication/Route/Dose:: See Mar, intubated and sedated Patient Mental Status Patient Mental Status: Performed under general anesthesia Nerve Block 1st Nerve Block: Laterality: Right Block Type: TAP Unilateral Needle / Catheter Used: 120mm SonoPlex II Local Anesthetic Bolus (Indicate Dose Given): Bupivacaine 0.25% Dose:: 10cc and Exparel Dose:: 10cc Additives (Indicate Dose Given): None Ultrasound: Sterile probe cover and gel used Ultrasound Image Saved?: Yes Nerve Stimulator: Not Used Paresthesia: None Procedure Tolerated: No Complications and Patient tolerated well Procedure Outcome: Successful Performed By: Anna Carver Supervised By: Shane Flores
[2021-11-04] MEDS: Bupivacaine 0.25% Pres-Free 30 ML VIAL (08:20)
[2021-11-04] MEDS: HYDROmorphone 2 MG/ML VIAL IVP (09:06)
[2021-11-04] MEDS: Normal Saline 10 ML VIAL IJ (09:06)
--- NOTE | 2021-11-04 09:19 | W.ANESPOSTOP ---
Postoperative Evaluation Date, Time and Location Date Performed: 11/04/21 Time Performed: 09:19 Patient Location: Day Surgery Unit Vital Signs Most Recent Imported Vital Signs: Most Recent Vital Signs Temp Pulse Resp BP Pulse Ox 36.4 C L 46 L 17 111/68 95 11/04/21 09:05 11/04/21 09:05 11/04/21 09:05 11/04/21 09:05 11/04/21 09:05 Pain Score Most Recent Pain Score: Most Recent Pain Score Pain Level 6 11/04/21 09:05 Assessment Mental Status: Arousable with meaningful communication Airway and Respiratory Function: Patent airway with normal (patient baseline) respiratory exam Cardiovascular Function: Hemodynamically Stable Hydration Status: Adequately Hydrated Nausea & Vomiting: No Nausea or Vomiting Pain: Pain is tolerable per patient Peripheral Nerve Block: Regional nerve block not resolved at time of post operative discharge
[2021-11-04] MEDS: traMADol 50 MG TAB PO (10:23)
== END 2021-11-04 11:10 | disposition home or self-care (01) ==
PROVIDERS: PCP Family Medicine; Visit Provider Surgery
PROC: (CPT 49520; principal; 2021-11-04 07:30)
DX: K40.91 Unilateral inguinal hernia, without obstruction or gangrene, recurrent (principal); J45.909 Unspecified asthma, uncomplicated; I10 Essential (primary) hypertension; E78.5 Hyperlipidemia, unspecified
CPT/HCPCS: 49520; 76942; C1781; J0690; J1100; J1885; J2001; J2405

== ENCOUNTER → 2021-11-20 08:56 | Outpatient (BNVA) | payer OTHER, SELFPAY | PROVIDERS: PCP Family Medicine; Referring Provider Family Medicine; Visit Provider Surgery | DX: Z48.815 Encounter for surgical aftercare following surgery on the digestive system (principal); Z87.19 Personal history of other diseases of the digestive system ==

== ENCOUNTER 2022-08-18 16:54 | Outpatient (REF) | payer MEDICARE, SELFPAY ==
[2022-08-18 18:03] LABS: Anion Gap 8.1 mmol/L (3-11); BUN 23 mg/dL (7-18); CO2 24.9 mmol/L (21.0-32.0); CREATININE 1.1 mg/dL (0.70-1.30); Calcium 9.2 mg/dL (8.5-10.1); Chloride 108 mmol/L (98-107); Estimated GFR 71.32 (mL/min/1.73m2); Glucose 103 mg/dL (74-106); Potassium 4.2 mmol/L (3.5-5.1); Sodium 141 mmol/L (136-145)
[2022-08-18 18:23] LABS: Calculated LDL 120 mg/dL (<100); Cholesterol 199 mg/dL (<200); HDL Cholesterol 65 mg/dL (40-60); Triglyceride 70 mg/dL (<150)
== END 2022-08-18 16:55 | disposition home or self-care (01) ==
LOC: NCHCN 16:54
PROVIDERS: PCP Family Medicine; Visit Provider Family Medicine
DX: E78.5 Hyperlipidemia, unspecified (principal); I10 Essential (primary) hypertension
CPT/HCPCS: 80048; 80061

== ENCOUNTER 2023-02-23 17:25 | Outpatient (REF) | payer MEDICARE, SELFPAY ==
[2023-02-23 19:25] LABS: AST 17 U/L (15-37); Calculated LDL 67 mg/dL (<100); Cholesterol 141 mg/dL (<200); HDL Cholesterol 64 mg/dL (40-60); Triglyceride 50 mg/dL (<150)
== END 2023-02-23 17:26 | disposition home or self-care (01) ==
LOC: NCHCN 17:25
PROVIDERS: PCP Family Medicine; Visit Provider Family Medicine
DX: E78.5 Hyperlipidemia, unspecified (principal)
CPT/HCPCS: 80061; 84450

== ENCOUNTER 2023-03-14 10:09 | Outpatient (CLI) | payer MEDICARE, SELFPAY ==
--- NOTE | 2023-03-14 09:45 | DI.RAD_ITS ---
Exam(s) XR KNEE LT 3V AP,LAT,CHAVA EXAM: XR KNEE LT 3V AP,LAT,CHAVA CLINICAL HISTORY: pain. TECHNIQUE: 2D digital imaging was performed of the left knee. Three images were obtained. AP, late ral and PA tunnel views were obtained. COMPARISON: No priors for comparison. FINDINGS: BONES: No acute fracture is present. No bony destructive lesion is seen. JOINTS: There are marked degenerative changes in the knee characterized by joint space narrowing and osteophytes. The findings are most marked at the patellofemoral joint. There is a tiny joint effusi on. There are osseous densities around the joint which may represent osteochondromatosis. SOFT TISSUE: Normal. IMPRESSION: Osteoarthritis. DATA REPOSITORY: RADIATION DOSE DELIVERED:
== END 2023-03-14 10:10 | disposition home or self-care (01) ==
LOC: DIORS 10:10
PROVIDERS: PCP Family Medicine; Referring Provider Family Medicine; Visit Provider Physician Assistant
DX: M17.12 Unilateral primary osteoarthritis, left knee
CPT/HCPCS: 73562; 99213

== ENCOUNTER 2023-06-27 03:55 | Outpatient (CLI) | payer MEDICARE, SELFPAY ==
[2023-06-27 11:12] LABS: HCT 44.5 % (40.0-50.0); HGB 15.2 g/dL (13.5-17.5); MCH 31.1 pg (27.0-33.0); MCHC 34.2 % (32.0-36.0); MCV 91 fL (80-95); MPV 10.6 fL (8.0-11.0); Platelet Count 195 10^3/uL (130-400); RBC 4.89 10^6/uL (4.36-5.78); RDW 12.7 % (11.8-14.1); RDW-SD 42.6 fL; WBC 6.66 10^3/uL (4.4-10.8)
[2023-06-27 11:30] LABS: Anion Gap 5.7 mmol/L (3-11); BUN 23 mg/dL (7-18); CO2 28.3 mmol/L (21.0-32.0); CREATININE 1.1 mg/dL (0.70-1.30); Calcium 9.2 mg/dL (8.5-10.1); Chloride 105 mmol/L (98-107); Estimated GFR 70.88 (mL/min/1.73m2); Glucose 102 mg/dL (74-106); Potassium 4.4 mmol/L (3.5-5.1); Sodium 139 mmol/L (136-145)
== END 2023-06-27 03:56 | disposition home or self-care (01) ==
LOC: LBO 03:55
PROVIDERS: PCP Family Medicine; Visit Provider Student in an Organized Health Care Education/Training Program
DX: M17.12 Unilateral primary osteoarthritis, left knee (principal); Z01.818 Encounter for other preprocedural examination
CPT/HCPCS: 36415; 80048; 85027

== ENCOUNTER 2023-06-27 10:48 | Outpatient (CLI) | payer MEDICARE, SELFPAY ==
--- NOTE | 2023-06-27 10:00 | DI.RAD_ITS ---
Exam(s) XR STANDING ALIGNMENT EXAM: XR STANDING ALIGNMENT CLINICAL HISTORY: TKR Planning. TECHNIQUE: 2D digital imaging was performed. Standing AP views were performed from the pelvis throu gh the ankles. COMPARISON: CR XR KNEE LT 3V AP,LAT,CHAVA from 03/14/2023 FINDINGS: BONES: No acute fracture is present. No bony destructive lesion is seen. Leg length discrepancy: JOINTS: Knees: Narrowing and prominent periarticular spurring at the lateral femoral tibial joint spa ce of the left knee. Mild valgus angulation. Multiple joint space loose bodies posteriorly. Spurri ng at the lateral femoral tibial joint of the right knee. No significant joint space narrowing. The ankle joints are unremarkable. The hip joints show mild bilateral acetabular spurring. SOFT TISSUE: Normal. IMPRESSION: Degenerative changes, greatest at the lateral femoral tibial joint of the left knee. . No significant leg length discrepancy. DATA REPOSITORY: RADIATION DOSE DELIVERED:
== END 2023-06-27 10:49 | disposition home or self-care (01) ==
LOC: DIORS 10:48
PROVIDERS: PCP Family Medicine; Visit Provider Physician Assistant
DX: M17.12 Unilateral primary osteoarthritis, left knee (principal); Z01.818 Encounter for other preprocedural examination
CPT/HCPCS: 77073

== ENCOUNTER 2023-07-13 10:26 | Day surgery (SDC) | payer MEDICARE, SELFPAY ==
[2023-07-13] VITALS (11 sets, daily range): BP systolic 114–149; BP diastolic 76–102; PULSE 45–75; RESP 12–18; TEMP 36–36.5; O2SAT 95–99; BMI 26.6
--- NOTE | 2023-07-13 11:29 | ANES.PREOP_ITS ---
General Info Height: 6 ft 2 in Weight: 94.3 kg Body Mass Index (BMI): 26.6 Surgical Procedure: Operation Date: 07/13/23 13:10 Proposed Procedure Side Surgeon p Knee Total Arthroplasty, Cementless CR Left Ric Aguila MD Meds Allergies and Home Medications Home Medication Medication Instructions Recorded oltskjef-qup-pnruv acid 0.4 1 tab PO DAILY 10/15/13 mg-lycopene 300 mcg-lutein 250 mcg tablet (Centrum Silver) lisinopril 10 mg tablet 5 mg PO DAILY 01/10/20 latanoprost 0.005 % eye drops 1 drp ophthalmic (eye) DAILY 10/15/20 atorvastatin 20 mg tablet 20 mg PO DAILY 09/11/21 propylene glycol 0.6 % eye drops 1 drp ophthalmic (eye) DAILY PRN 09/11/21 (Systane Balance) omeprazole 20 mg capsule,delayed 20 mg PO DAILY PRN 06/27/23 release acetaminophen 500 mg tablet 1,000 mg (2 x 500 mg) PO TID #90 07/13/23 tabs aspirin 81 mg tablet,delayed 81 mg PO BID #60 tabs 07/13/23 release celecoxib 200 mg capsule 200 mg PO BID #60 caps 07/13/23 dexamethasone 4 mg tablet 4 mg PO DAILY #2 tabs 07/13/23 gabapentin 300 mg capsule 300 mg PO QHS #14 caps 07/13/23 oxycodone 5 mg tablet 5 mg PO Q4H PRN pain #20 tabs 07/13/23 Current Visit Medications: Current Medications Generic Name Dose Route Start Last Admin Trade Name Freq PRN Reason Stop Dose Admin Acetaminophen 1,000 mg 07/13/23 09:49 Acetaminophen 500 Mg Tab PO 08/12/23 09:48 TID PRN PRN Analgesia Acetaminophen 1,000 mg 07/13/23 10:45 Acetaminophen 500 Mg Tab PO 07/13/23 18:00 PREOP DARRION Celecoxib 400 mg 07/13/23 10:45 Celecoxib 200 Mg Cap PO 07/13/23 18:00 PREOP DARRION Docusate Sodium 100 mg 07/13/23 09:49 Docusate Sodium 100 Mg Cap PO 08/12/23 09:48 BID PRN PRN Constipation Gabapentin 300 mg 07/13/23 10:45 Gabapentin 300 Mg Cap PO 07/13/23 18:00 PREOP DARRION Ringer's Solution 1,000 mls @ 80 mls/hr 07/13/23 06:00 IV 07/13/23 23:59 INFUSION DARRION Cefazolin Sodium/Dextrose 2 gm in 50 mls @ 100 mls/hr 07/13/23 06:00 Ancef Duplex IVPB 07/13/23 23:59 PREOP DARRION Tranexamic Acid 1,000 mg/ 60 mls @ 360 mls/hr 07/13/23 10:00 Sodium Chloride IVPB 07/13/23 18:00 PREOP DARRION Tranexamic Acid 1,000 mg/ 60 mls @ 360 mls/hr 07/13/23 10:45 Sodium Chloride IVPB 08/12/23 10:44 PREOP DARRION IV Miscellaneous Supplies 1 each 07/13/23 06:00 Iv Access IV 07/13/23 23:59 DIRECTED DARRION Ondansetron HCl 4 mg 07/13/23 09:49 Ondansetron 4 Mg/2 Ml Vial IVP 08/12/23 09:48 Q6H PRN PRN Nausea Oxycodone HCl 0 mg 07/13/23 09:49 Oxycodone 5 Mg Tab PO 08/12/23 09:48 Q3H PRN PRN Pain Polyethylene Glycol 17 gm 07/13/23 09:49 Polyethylene Glycol 3350 17 Gm Packet PO 08/12/23 09:48 BID PRN PRN Constipation Sodium Chloride 0 ml 07/13/23 06:00 Normal Saline Flush 10 Ml Syr IV 07/13/23 23:59 PRN PRN Sodium Chloride 0 ml 07/13/23 06:00 Normal Saline 10 Ml Vial IJ 07/13/23 23:59 DIRECTED PRN Sterile Water 0 ml 07/13/23 06:00 Water,Injection,Sterile 10 Ml Vial IJ 07/13/23 23:59 DIRECTED PRN PFSH Active Problems Active Problems: Problem Status Onset Code Wears hearing aid in both ears Z97.4 Osteoarthritis of left knee M17.12 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 Recurrent simple right inguinal hernia K40.91 Medical History Medical History Adenomatous polyps Asthma BPH (benign prostatic hyperplasia) Calcific Achilles tendinitis of right lower extremity s/p surgical debridement Erectile dysfunction Hernia History of basal cell carcinoma Hyperlipidemia Hypertension Lower urinary tract symptoms (LUTS) Osteoarthritis Pain of left heel Recurrent oral herpes simplex Sensorineural hearing loss of both ears Skin lesion Spermatocele of epididymis, multiple (12/20/17) Urinary frequency Being tx with tamsulosin Medical History Comments:: screws in R heel Surgical History Surgical History Achilles bursitis or tendinitis Right repaired. Calcific Achilles tendinitis of left lower extremity s/p debridement 09/23/2020 History of arthroscopic knee surgery Both knees. History of colonoscopy with polypectomy (~01/30/21) History of left inguinal hernia repair Hx of right inguinal hernia repair (~11/04/21) Tobacco Smoking/Tobacco Use Status: Never Alcohol Alcohol Intake: current Alcohol intake frequency: a few times a week Alcohol type: beer, wine and hard liquor Substance Use Substance use: Never Substance use type: does not use Vital Signs and Lab Results Vital Signs Most Recent Vital Signs in EMR: Most Recent Vital Signs Temp Pulse Resp BP Pulse Ox 36.0 C L 75 18 135/102 H 96 07/13/23 10:55 07/13/23 10:55 07/13/23 10:55 07/13/23 10:55 07/13/23 10:55 Lab Results Blood Type / Crossmatch: No Data to Display Complete Blood Count: White Blood Count 6.66 10^3/uL (4.4-10.8) 06/27/23 11:05 Red Blood Count 4.89 10^6/uL (4.36-5.78) 06/27/23 11:05 Hemoglobin 15.2 g/dL (13.5-17.5) 06/27/23 11:05 Hematocrit 44.5 % (40.0-50.0) 06/27/23 11:05 Platelet Count 195 10^3/uL (130-400) 06/27/23 11:05 Complete Metabolic Panel: Sodium 139 mmol/L (136-145) 06/27/23 11:05 Potassium 4.4 mmol/L (3.5-5.1) 06/27/23 11:05 Chloride 105 mmol/L (98-107) 06/27/23 11:05 Carbon Dioxide 28.3 mmol/L (21.0-32.0) 06/27/23 11:05 BUN 23 mg/dL (7-18) H 06/27/23 11:05 Creatinine 1.1 mg/dL (0.70-1.30) 06/27/23 11:05 Est GFR (CKD-EPI 2020) 70.88 (mL/min/1.73m2) 06/27/23 11:05 Calcium 9.2 mg/dL (8.5-10.1) 06/27/23 11:05 Glucose 102 mg/dL (74-106) 06/27/23 11:05 Liver Function Panel: 2 No Data to Display Coagulation Panel: No Data to Display Cardiac Panel: No Data to Display Arterial Blood Gas: No Data to Display Venous Blood Gas: No Data to Display Pancreas Panel: No Data to Display Thyroid Panel: No Data to Display Infectious Disease: No Data to Display Blood Cultures: No Data to Display Toxicology Panel: No Data to Display Anesthesia Assessment and Plan Anesthesia History Personal History: No History of Anesthesia Complications Family History: No Family History of Anesthesia Complications Exercise Tolerance Exercise Tolerance: Metabolic Equivalents>4 Pertinent Negatives Pertinent Negatives: No Symptoms of GERD, No Major Cardiovascular Symptoms or Complaints and No History of CVA/TIA Cardiac & Pulmonary Exam Cardiac Exam: Normal S1/S2 Heart Sounds Pulmonary Exam: Clear Bilateral Breath Sounds Implantable Cardiac Device Does patient have a Pacemaker or an ICD?: No Airway Exam Known Difficult Airway: No Mallampati Class: 2 Mouth Opening: Normal (> 3cm) Thyromental Distance: Greater than 3 cm Neck Range of Motion: Full ROM Neck Circumference: Normal Teeth Condition: Normal Dentition ASA Classification ASA Score: ASA 2 Emergency Case?: No NPO Status NPO Status: NPO Clears >2 hours, Solids >8 hours Anesthesia Plan Resuscitation Status: Full Code Anesthesia Technique: Spinal Anesthesia Airway Planned: Natural Airway Pain Management: Surgeon and patient request nerve block Monitors Used: Standard Monitors Preoperative Comments:: 72 yo male in for total knee arthroplasty PPMhx: Asthma(no listed home medications), HTN (lisinopril), GERD (Omeprazole) PSHx: Inguinal hernia repairs, knee arthroscopy, Achilles bursitis/tendonitis repair, colonoscopies, Last ANES: - 11/05/2021: LMA 5, easily placed, appeared stable throughout, Postop note unremarkable
[2023-07-13] MEDS: Celecoxib 200 MG CAP 400 MG PO (11:38)
[2023-07-13] MEDS: Gabapentin 300 MG CAP PO (11:39)
[2023-07-13] MEDS: Acetaminophen 500 MG TAB 1000 MG PO (11:39)
[2023-07-13] MEDS: Lactated Ringers 1,000 ML 80 ML IV (11:52)
--- NOTE | 2023-07-13 12:39 | W.ANESPRE ---
General Info Date of Service Date Performed: 07/13/23 Height: 6 ft 2 in Weight: 94.3 kg Body Mass Index (BMI): 26.6 Surgical Procedure: Operation Date: 07/13/23 13:10 Proposed Procedure Side Surgeon p Knee Total Arthroplasty, Cementless CR Left Ric Aguila MD Meds Allergies and Home Medications Allergies Allergy/AdvReac Type Severity Reaction Status Date / Time No Known Allergies Allergy Verified 07/13/23 11:53 Home Medication Medication Instructions Recorded jkkshkxg-jbl-dqtfz acid 0.4 1 tab PO DAILY 10/15/13 mg-lycopene 300 mcg-lutein 250 mcg tablet (Centrum Silver) lisinopril 10 mg tablet 5 mg PO DAILY 01/10/20 latanoprost 0.005 % eye drops 1 drp ophthalmic (eye) DAILY 10/15/20 atorvastatin 20 mg tablet 20 mg PO DAILY 09/11/21 propylene glycol 0.6 % eye drops 1 drp ophthalmic (eye) DAILY PRN 09/11/21 (Systane Balance) omeprazole 20 mg capsule,delayed 20 mg PO DAILY PRN 06/27/23 release acetaminophen 500 mg tablet 1,000 mg (2 x 500 mg) PO TID #90 07/13/23 tabs aspirin 81 mg tablet,delayed 81 mg PO BID #60 tabs 07/13/23 release celecoxib 200 mg capsule 200 mg PO BID #60 caps 07/13/23 dexamethasone 4 mg tablet 4 mg PO DAILY #2 tabs 07/13/23 gabapentin 300 mg capsule 300 mg PO QHS #14 caps 07/13/23 oxycodone 5 mg tablet 5 mg PO Q4H PRN pain #20 tabs 07/13/23 Current Visit Medications: Current Medications Generic Name Dose Route Start Last Admin Trade Name Freq PRN Reason Stop Dose Admin Acetaminophen 1,000 mg 07/13/23 09:49 07/13/23 11:39 Acetaminophen 500 Mg Tab PO 08/12/23 09:48 1,000 mg TID PRN PRN Administration Analgesia Acetaminophen 1,000 mg 07/13/23 10:45 Acetaminophen 500 Mg Tab PO 07/13/23 18:00 PREOP DARRION Celecoxib 400 mg 07/13/23 10:45 07/13/23 11:38 Celecoxib 200 Mg Cap PO 07/13/23 18:00 400 mg PREOP DARRION Administration Docusate Sodium 100 mg 07/13/23 09:49 Docusate Sodium 100 Mg Cap PO 08/12/23 09:48 BID PRN PRN Constipation Gabapentin 300 mg 07/13/23 10:45 07/13/23 11:39 Gabapentin 300 Mg Cap PO 07/13/23 18:00 300 mg PREOP DARRION Administration Ringer's Solution 1,000 mls @ 80 mls/hr 07/13/23 06:00 07/13/23 11:52 IV 07/13/23 23:59 80 mls/hr INFUSION DARRION Administration Cefazolin Sodium/Dextrose 2 gm in 50 mls @ 100 mls/hr 07/13/23 06:00 Ancef Duplex IVPB 07/13/23 23:59 PREOP DARRION Tranexamic Acid 1,000 mg/ 60 mls @ 360 mls/hr 07/13/23 10:00 Sodium Chloride IVPB 07/13/23 18:00 PREOP DARRION Tranexamic Acid 1,000 mg/ 60 mls @ 360 mls/hr 07/13/23 10:45 Sodium Chloride IVPB 08/12/23 10:44 PREOP DARRION IV Miscellaneous Supplies 1 each 07/13/23 06:00 Iv Access IV 07/13/23 23:59 DIRECTED DARRION Ondansetron HCl 4 mg 07/13/23 09:49 Ondansetron 4 Mg/2 Ml Vial IVP 08/12/23 09:48 Q6H PRN PRN Nausea Oxycodone HCl 0 mg 07/13/23 09:49 Oxycodone 5 Mg Tab PO 08/12/23 09:48 Q3H PRN PRN Pain Polyethylene Glycol 17 gm 07/13/23 09:49 Polyethylene Glycol 3350 17 Gm Packet PO 08/12/23 09:48 BID PRN PRN Constipation Sodium Chloride 0 ml 07/13/23 06:00 Normal Saline Flush 10 Ml Syr IV 07/13/23 23:59 PRN PRN Sodium Chloride 0 ml 07/13/23 06:00 Normal Saline 10 Ml Vial IJ 07/13/23 23:59 DIRECTED PRN Sterile Water 0 ml 07/13/23 06:00 Water,Injection,Sterile 10 Ml Vial IJ 07/13/23 23:59 DIRECTED PRN PFSH Active Problems Active Problems: Problem Status Onset Code Wears hearing aid in both ears Z97.4 Osteoarthritis of left knee M17.12 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 Recurrent simple right inguinal hernia K40.91 Medical History Medical History Adenomatous polyps Asthma BPH (benign prostatic hyperplasia) Calcific Achilles tendinitis of right lower extremity s/p surgical debridement Erectile dysfunction Hernia History of basal cell carcinoma Hyperlipidemia Hypertension Lower urinary tract symptoms (LUTS) Osteoarthritis Pain of left heel Recurrent oral herpes simplex Sensorineural hearing loss of both ears Skin lesion Spermatocele of epididymis, multiple (12/20/17) Urinary frequency Being tx with tamsulosin Medical History Comments:: screws in R heel Surgical History Surgical History Achilles bursitis or tendinitis Right repaired. Calcific Achilles tendinitis of left lower extremity s/p debridement 09/23/2020 History of arthroscopic knee surgery Both knees. History of colonoscopy with polypectomy (~01/30/21) History of left inguinal hernia repair Hx of right inguinal hernia repair (~11/04/21) Tobacco Smoking/Tobacco Use Status: Never Alcohol Alcohol Intake: current Alcohol intake frequency: a few times a week Alcohol type: beer, wine and hard liquor Substance Use Substance use: Never Substance use type: does not use Vital Signs and Lab Results Vital Signs Most Recent Vital Signs in EMR: Most Recent Vital Signs Temp Pulse Resp BP Pulse Ox 36.0 C L 55 L 18 149/92 H 96 07/13/23 10:55 07/13/23 11:54 07/13/23 11:54 07/13/23 11:54 07/13/23 11:54 Lab Results Blood Type / Crossmatch: No Data to Display Complete Blood Count: White Blood Count 6.66 10^3/uL (4.4-10.8) 06/27/23 11:05 Red Blood Count 4.89 10^6/uL (4.36-5.78) 06/27/23 11:05 Hemoglobin 15.2 g/dL (13.5-17.5) 06/27/23 11:05 Hematocrit 44.5 % (40.0-50.0) 06/27/23 11:05 Platelet Count 195 10^3/uL (130-400) 06/27/23 11:05 Complete Metabolic Panel: Sodium 139 mmol/L (136-145) 06/27/23 11:05 Potassium 4.4 mmol/L (3.5-5.1) 06/27/23 11:05 Chloride 105 mmol/L (98-107) 06/27/23 11:05 Carbon Dioxide 28.3 mmol/L (21.0-32.0) 06/27/23 11:05 BUN 23 mg/dL (7-18) H 06/27/23 11:05 Creatinine 1.1 mg/dL (0.70-1.30) 06/27/23 11:05 Est GFR (CKD-EPI 2020) 70.88 (mL/min/1.73m2) 06/27/23 11:05 Calcium 9.2 mg/dL (8.5-10.1) 06/27/23 11:05 Glucose 102 mg/dL (74-106) 06/27/23 11:05 Liver Function Panel: No Data to Display Coagulation Panel: No Data to Display Cardiac Panel: No Data to Display Arterial Blood Gas: No Data to Display Venous Blood Gas: No Data to Display Pancreas Panel: No Data to Display Thyroid Panel: No Data to Display Infectious Disease: No Data to Display Blood Cultures: No Data to Display Toxicology Panel: No Data to Display Anesthesia Assessment and Plan Anesthesia History Personal History: No History of Anesthesia Complications Family History: No Family History of Anesthesia Complications Exercise Tolerance Exercise Tolerance: Metabolic Equivalents>4 Cardiac & Pulmonary Exam Cardiac Exam: Normal S1/S2 Heart Sounds Pulmonary Exam: Clear Bilateral Breath Sounds Implantable Cardiac Device Does patient have a Pacemaker or an ICD?: No Airway Exam Known Difficult Airway: No Mallampati Class: 2 Mouth Opening: Normal (> 3cm) Thyromental Distance: Greater than 3 cm Neck Range of Motion: Full ROM Neck Circumference: Normal Teeth Condition: Normal Dentition ASA Classification ASA Score: ASA 2 Emergency Case?: No NPO Status NPO Status: NPO Clears >2 hours, Solids >8 hours Anesthesia Plan Resuscitation Status: Full Code Anesthesia Technique: Spinal Anesthesia Airway Planned: Natural Airway Pain Management: Surgeon and patient request nerve block Monitors Used: Standard Monitors
[2023-07-13] MEDS: ceFAZolin 2 GM/50 ML BAG IVPB (13:29)
--- NOTE | 2023-07-13 14:40 | W.ANESNERVE ---
Nerve Block Single Injection Procedure Date and Time Date Performed: 07/13/23 Procedure Start: 13:09 Location Where Procedure Performed Procedure Location: Day Surgery Unit Reason Performed: Postoperative Analgesia Requesting Provider: Ric Aguila Timeout Performed Timeout Performed: Yes Monitoring Used ECG, Blood Pressure, SpO2 and See EMR for corresponding vital signs Sterility Sterility: Hand Hygiene, Surgical Cap, Surgical Mask, Sterile Gloves and Chlorhexidine Sedation Given During Procedure Sedation Given (Indicate Dose Given): Versed IV Dose:: 2mg Patient Mental Status Patient Mental Status: Sedate with meaningful communication Nerve Block 1st Nerve Block: Laterality: Left Block Type: Adductor Canal Ultrasound Image Saved?: Yes Needle / Catheter Used: 100mm SonoPlex II Local Anesthetic Bolus (Indicate Dose Given): None, Lidocaine used for local infiltration of skin, Injected in 3-5ml increments after negative blood aspiration and Bupivacaine 0.25% Dose:: 15mL Additives (Indicate Dose Given): None Ultrasound: Sterile probe cover and gel used Nerve Stimulator: Supplement to Ultrasound use and No twitch or parasthesia noted < 0.5 mA Paresthesia: None Procedure Tolerated: No Complications and Patient tolerated well Procedure Outcome: Successful Performed By: Audelia Baum
--- NOTE | 2023-07-13 16:24 | W.ANESPOSTOP ---
Postoperative Evaluation Date, Time and Location Date Performed: 07/13/23 Time Performed: 15:36 Patient Location: PACU Vital Signs Most Recent Imported Vital Signs: Most Recent Vital Signs Temp Pulse Resp BP Pulse Ox 36.1 C L 47 L 14 135/81 99 07/13/23 16:02 07/13/23 16:02 07/13/23 16:02 07/13/23 16:02 07/13/23 16:02 Pain Score Most Recent Pain Score: Most Recent Pain Score Pain Level 0 07/13/23 15:51 Assessment Mental Status: Awake (Alert & Oriented to Patient Baseline) Airway and Respiratory Function: Patent airway with normal (patient baseline) respiratory exam Cardiovascular Function: Hemodynamically Stable Hydration Status: Adequately Hydrated Nausea & Vomiting: No Nausea or Vomiting Pain: Pt. Denies Any Pain Peripheral Nerve Block: Regional nerve block not resolved at time of post operative discharge
--- NOTE | 2023-07-13 16:49 | W.PM.DSUDISC ---
Date of service: 07/13/23 Time of Service: 16:49 Discharge Plan Disposition Patient Disposition: Home Condition: Good Discharge Details Reason For Visit: L TKR Attending Provider: Ric Aguila Primary Care Provider: Teresa Menchaca Home Meds and New Rx's Prescriptions: New acetaminophen 500 mg tablet 1,000 mg PO TID Qty: 90 3RF aspirin 81 mg tablet,delayed release (DR/EC) 81 mg PO BID Qty: 60 0RF celecoxib 200 mg capsule 200 mg PO BID Qty: 60 0RF dexamethasone 4 mg tablet 4 mg PO DAILY Qty: 2 0RF gabapentin 300 mg capsule 300 mg PO QHS Qty: 14 0RF oxycodone 5 mg tablet 5 mg PO Q4H MDD 6 tabs PRN (Reason: pain) Qty: 20 0RF Continued latanoprost 0.005 % drops 1 drp ophthalmic (eye) DAILY atorvastatin 20 mg tablet 20 mg PO DAILY Systane Balance 0.6 % drops 1 drp ophthalmic (eye) DAILY PRN omeprazole 20 mg capsule,delayed release(DR/EC) 20 mg PO DAILY PRN Centrum Silver 1 EACH tablet 1 tab PO DAILY lisinopril 10 mg tablet 5 mg PO DAILY Discontinued acetaminophen [Tylenol Extra Strength] 500 mg tablet 500 mg PO Q6H PRNQty: 90 0RF ibuprofen 600 mg tablet 600 mg PO TID Qty: 90 0RF Discharge Instructions Additional Instructions: Total Knee Discharge Instructions Activity: The most important activity is to walk and to work on gentle motion (both flexion and extension). You should try to take short walks a few times a day. It is important that when resting you work on keeping the knee straight. Avoid putting a pillow behind the knee as this will encourage flexion. Work on range of motion exercises as provided by Physical Therapy. - Start outpatient physical therapy within 2 weeks. - You should wear the TORY hose on both legs for 2 weeks. You may remove these at night. You may also use any compression sock in place of the TORY hose. - Utilize [employer] to review exercises, see videos on exercises and obtain basic information pertaining to your surgery and your recovery. Dressing: Remove the Bob wrap by 2 days after your surgery and put on the TORY stocking given to you from the hospital. Keep the surgical dressing (underneath the BOB wrap) in place for at least one week. After the first week it may be removed and replaced with light gauze and tape or nothing. The wound and dressing may get wet after 3 days but avoid soaking the dressing or otherwise it will need to be changed. Many people prefer covering the dressing with cling wrap (saran wrap) to minimize it from getting soaked. If it gets wet, just pat dry. If it starts to peel off then it will need to be changed. Medications: - You should take Tylenol and anti-inflammatory Celebrex as your primary pain control medications. If the Celebrex is too expensive or not covered, please call the office for another alternative (Advil/Ibuprofen or Naproxen/Aleve) - You have been prescribed a stronger pain medication Oxycodone for breakthrough pain, take as needed as prescribed. - You will continue your omeprazole to help reduce stomach acid and reflux. - You have been prescribed Gabapentin to take at night for restlessness and nerve pain. - You will be taking Aspirin 81mg twice a day for DVT prevention unless instructed otherwise. - You have also been prescribed Decadron to take to control post-operative nausea and pain. You will start this tomorrow. - If you have constipation you should take Colace or Miralax (both [id number]). It takes most people 3-4 days to have a bowel movement. Follow-up: 2 weeks If you have any acute concerns or questions, please do not hesitate to contact the office at [phone]. You may contact Dr. Aguila with any questions after hours through the hospital at [phone] or on his cell phone at [phone]. Stand Alone Forms: Anesthesia Discharge Inst., Lamars.Nerve Block Instructions, Gerri Solares (DSU) Referrals: Ric Aguila MD [ [facility] STAFF PHYSICIAN] - 07/29/23 9:15 am Equipment/Supplies: Walker Activity:: Activity as Tolerated Shower/Bathe:: 72 hours Diet:: As Tolerated Discharge Orders Discharge Orders: Discharge Order (Routine); Ordered 07/13/23 Ordered By: Ric Aguila DS: Diagnosis Discharge Diagnosis (1) Osteoarthritis of left knee: Status: Acute
[2023-07-13] MEDS: oxyCODONE 5 MG TAB PO (16:58)
--- NOTE | 2023-07-13 17:19 | IN_ITS ---
PT Notes Visit Reasons: L TKR Physical Therapy Day Surgery Initial Evaluation Date: 07/13/2023 Referring Doctor: JAY Bryan PT Orders: PT CONSULT: S/P Ortho Surgery Precautions: WBAT on the L LE with AD. Patient Profile/Admitting Diagnosis: Dell is a 72-year-old male with primary unilateral osteoarthritis of the left knee and is status post left total knee arthroplasty on postoperative day 0. PMHX: Medical History Adenomatous polyps Asthma BPH (benign prostatic hyperplasia) Calcific Achilles tendinitis of right lower extremity s/p surgical debridementErectile dysfunction Hernia History of basal cell carcinoma Hyperlipidemia Hypertension Lower urinary tract symptoms (LUTS) Osteoarthritis Pain of left heel Recurrent oral herpes simplex Sensorineural hearing loss of both ears Skin lesion Spermatocele of epididymis, multiple (12/20/17) Urinary frequency Being tx with tamsulosin Surgical History Achilles bursitis or tendinitis Right repaired.Calcific Achilles tendinitis of left lower extremity s/p debridement 09/23/2020History of arthroscopic knee surgery Both knees.History of colonoscopy with polypectomy (~01/30/21) History of left inguinal hernia repair Hx of right inguinal hernia repair (~11/04/21) Social History/Home Situation: Lives with in a private home with 3 steps to enter with 1 rail. Independent with all aspects of ADLs prior to surgery. 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 Equipment Owned/DME: Worn out/old FWW Subjective: Reports 5/10 pain in the left knee at rest that decreased down to 3?4/10 with walking. Denies headache, chest pain, and lightheadedness throughout session. Objective: General Observation: Resting in bed. LION wraps to the left LE. Cryocuff to left knee. TEDS to right leg. present in room throughout session. Mental Status: A and O x 4 Pain: As above ROM: Right Lower Extremity: Hip flexion WFL. Hip abduction WFL. Knee flexion WFL. Ankle dorsiflexion WFL. Ankle plantarflexion WFL. Left Lower Extremity: Hip flexion WFL. Hip abduction WFL. Knee flexion 0-100 degrees. Ankle dorsiflexion WFL. Ankle plantarflexion WFL. Strength: Right Lower Extremity: Hip flexors 5/5. Hip abductors 5/5. Knee flexors 5/5. Knee extensors 5/5. Ankle dorsiflexors 5/5. Ankle plantarflexors 5/5. Left Lower Extremity:Hip flexors 5/5. Hip abductors 5/5. Knee flexors3-/5. Knee extensors4-/5. Ankle dorsiflexors 5/5. Ankle plantarflexors 5/5. Sensation: Intact as to pain and light pressure in bilateral lower extremities Bed Mobility/Transfers: Minimal cueing provided for use of B hands as needed for support, movement sequence, AD management, and and posture to reduce fall risk and minimize pain report. Supine to sit stand by assist Sit to stand stand by assist with FWW Stand to sit stand by assist with FWW Bed to chair stand by assist with FWW Gait: Facilitated safe and correct performance of level surface ambulation covering a distance of 150 feet using front wheeled walker with reciprocal swing through heel-toe gait pattern requiring only standby assist and minimal verbal cueing for movement sequence, AD management, increased knee flexion during swing phase on the left, and posture to reduce fall risk and minimize pain report. Stairs: Guided patient with safe and correct negotiation of 6 x 4 inch steps and 4 times 6 inch steps while holding onto 1 rail requiring only standby assist and minimal verbal cueing for movement sequence, increased knee flexion on the left during each ascent, and overall safety to reduce fall risk and minimize pain report. Balance: Static Sitting: Normal Dynamic Sitting: Normal Static Standing: Fair Dynamic Standing: Fair Special Tests: Mobility Limitations Standardized Measure [facility] AM-PAC 6 clicks Basic Mobility Inpatient Short Form: Raw Score: 23 CMS Score: 11% deficit Informed Consent/Education: Patient instructed in purpose of PT consult. Packet containing TKA exercise protocol has been given to patient. Education and training on initial set of exercises that can be done at home have been completed with patient. Trained patient with correct performance of exercises below to maximize motor control, joint flexibility, soft tissue extensibility of the L knee musculature: Access Code: [email or web address] URL: [email or web address] Date: Prepared by: Aneta Lake Exercises - Supine Quad Set - 1 x daily - 7 x weekly - 1 sets - 10 reps - 5 hold - Supine Heel Slide - 1 x daily - 7 x weekly - 1 sets - 10 reps - 5 hold - Supine Ankle Pumps - 1 x daily - 7 x weekly - 1 sets - 10 reps - 5 hold - Small Range Straight Leg Raise - 1 x daily - 7 x weekly - 1 sets - 10 reps - 5 hold - Seated March - 1 x daily - 7 x weekly - 1 sets - 10 reps - 5 hold Assessment: Patient requires use of front wheeled walker for all mobility ADL performance to maximize independence and reduce fall risk. Patient presents with clinical signs and symptoms consistent with current/admitting diagnoses that have resulted to mobility limitations, gait instability, generalized weakness, and impairment of motor control as demonstrated by the following impairment level findings: 1. Decreased strength to left knee major muscle groups 2. Impaired standing balance 3. Limitation of joint range of motion in left knee Impairments are contributing to the following functional limitations: 1. Inability to safely ambulate without assistive device 2. Increase completion time for mobility ADL performance 3. Increased fall risk Patient is assessed as a 84225 moderate complexity based on the following: History: 72-year-old male with impairment level findings, functional limitations, and past medical history as indicated above Examination: Demonstrable impairment in strength, balance, and mobility level with underlying impairments and functional limitations as documented above Presentation: Evolving Decision Makin moderate complexity Goals: N/A. PT evaluation and 1-2 treatment sessions only for functional mobility training using recommended AD and for HEP instruction. Plan of Care/Treatment Plan: N/A. PT evaluation and 1-2 treatment session only for functional mobility training using recommended AD and for HEP instruction. DISCHARGE RECOMMENDATIONS: Home when medically cleared by orthopedic surgeon. Recommend outpatient PT services in order to optimize functional mobility outcomes and facilitate return to independent community ambulation without an assistive device. TREATMENT CODE/TIME: 11909 x 20 minutes for it, 58566 x 15 minutes for 1 unit 17:19 PM. Thank you for the opportunity to participate in the care of this patient. Aneta Lake PT, DPT, CLT [facility] [place], [place]
--- NOTE | 2023-07-13 17:28 | ROE_ITS ---
Date of service: 07/13/23 Time of Service: 13:30 Operative Note Operative Note DATE OF PROCEDURE: 07/13/23 PRE-OP DIAGNOSIS: Left knee Osteoarthritis POST-OP DIAGNOSIS: same PROCEDURE: Left Total Knee Replacement SURGEON: Ric Aguila CURRENCY MACHINE OPERATOR: Yahaira Nuñez ANESTHESIA TYPE: Spinal Refer to Anesthesia Record ESTIMATED BLOOD LOSS: 200 PATHOLOGY: none sent TOURNIQUET TIME: 0 COMPLICATIONS: None Patient was transported to: PACU Patient's condition: stable Implants: 1. Depuy Attune Cementless Cruciate Retaining Femoral Component, Size 9 2. Depuy Attune Cementless Fixed Bearing Tibial Component, Size 9 3. Depuy Attune 9x6 CR/FB Poly 4. Depuy Attune Patellar Component, Size 41 Indications: I have seen Dell in clinic for symptoms of knee arthritis, confirmed with radiographic findings. Dell has exhausted nonoperative methods and was having significant limitations in daily function and desired better function and less pain. I discussed the technical details of a knee replacement. I explained the risks of the procedure to include, but not limited to, bleeding, infection, pain, stiffness, fracture, damage to nerves and vessels, damage to muscles and tendons, loosening, need for repeat procedure, blood clot and cardiopulmonary demise. Despite these risks, Dell elected to proceed. Findings: There was significant signs of arthritis throughout the knee involving all 3 compartments but more so the lateral compartment, more than expected initially. Procedure Description: Dell was greeted in the preoperative holding area where the correct side was identified and marked. The consent was reviewed with the patient and signed. The history and physical was updated. All questions were answered. Preoperative medications were administered: Acetaminophen 1000mg, Celebrex 400mg, and Gabapentin 300mg. An adductor canal block was then administered by the anesthesia team in the DSU. Dell was taken back to the operating room. A spinal anesthestic was then administered. The patient was placed into the supine position on the operating room table. A nonsterile tourniquet was placed high onto the leg but only used for cementing. Posts were placed for positioning during the procedure. All bony prominences were well padded. Prophylactic antibiotics in the form of Cefazolin were administered. 1g of Tranxemic Acid was given intravenously within 30 minutes of incision. The left leg was then prepped with Chloraprep and draped in a standard fashion with impervious stockinette. A second prep with Chloraprep was performed prior to application of Iodine impregnated skin protection. A timeout to confirm correct identity, side and site, procedure, allergies, anesthesia, and medical concerns was performed. With the knee in some flexion, a midline incision was made overlying the knee. Full thickness skin flaps were raised once the extensor mechanism was encountered. These were raised medially and laterally. Any bleeding was controlled with electrocautery. Once the extensor mechanism was fully exposed, a medial parapatellar arthrotomy was performed in a flexed position. All bleeding from the arthrotomy and the g eniculate arteries was coagulated. A medial subperiosteal peel was performed with electrocautery to the midcoronal plane. The fat pad was removed while keeping the patellar tendon protected. The anterior distal femur synovium was removed for later visualization. The ACL and PCL were resected and the anterior horn of the lateral meniscus was transected. The knee was then flexed with the patella everted. Large osteophytes from the tibia were removed. Large osteophytes from the femur were removed. Using a step drill, and based on preoperative templating, the femoral canal was entered. This was done with a step drill without any difficulty. The intramedullary distal femoral cut guide was inserted, set to a 7 degree valgus cut and 9mm cut thickness. The distal femoral cut guide was then held in position and pinned. With the soft tissues protected, the distal cut was performed. This was passed over a few times to ensure a planar cut. I then turned attention to the tibia. The extramedullary guide was placed onto the leg. The distal aspect was slid medial to adjust for position of center of ankle and stay in line with shaft of the tibia. Approximately 3-5 degrees of posterior slope was kept in the proximal cutting guide. The center of the guide was aligned with the PCL. The stylus was used to assess cut thickness. The lateral side, most involved side, was set for a 4mm cut. This was then held in position and pinned into place with 2 additional pins and a cross pin for stability. The medial and lateral collateral ligaments were protected and the cut was performed. With this completed, it was assessed and noted to be of appropriate dimensions. The guide was removed. A spacer block was inserted and the knee was brought into extension. The 6mm spacer block provided full extension, without hyperextension and with stability of both the medial and lateral collateral ligaments was assessed. The pins from the femur and the tibia were then removed. The distal femur was then sized. The anterior stylus was placed onto the lateral ridge of the anterior femur. This indicated a size 9 femur. The external rotation of the guide was adjusted to 3 degrees to match the epicondylar axis, perpendicular to [place]?s line. The 4-in-1 cutting guide was the placed. The posterior medial femur cut was evaluated and appeared of good thickness. The spacer block was inserted underneath the cutting guide and stability was confirmed in 90 degrees of flexion. An juliana wing was used to confirm appropriate position of the anterior cut to avoid notching. This cutting guide was ensured to be flush on the cut surface and then pinned into place with headed pins. While protecting the soft tissues, quad tendon, and collateral ligaments, the anterior and posterior cuts were performed with a saw. The central two pins were removed and the posterior and anterior chamfers were cut next. The notch-cutting guide was placed. This was pinned to lateralize the femoral component as much as possible while keeping it flush on the cut surface. This was then pinned into position. A reciprocating saw was used to make the notch cut. A rasp smoothed the cut surfaces. The medial and lateral menisci were removed. A trial femoral component was then inserted, impacted down to the cut surfaces, and the lug holes were drilled. A provisional trial tibial component was placed and the knee was brought through range of motion. There was noted to be excellent extension and flexion. There was no significant instability. The patella was tracking without thumbs. A size 6mm polyethylene component provided the best range of motion and stability with less than 2mm gapping with medial and lateral stress and full extension without significant hyperextension. The tibial cut surface was fully exposed. The tibia was then sized as a 9. The tibia had been previously marked during trialing to correspond to the center of the tibial component to help with rotation. The trial was aligned to this yahaira, approximately rotated to the medial 1/3rd of the tibial tubercle. The trial was pinned into place. The tibia was prepared with a reamer and a keel punch and lug holes. The knee was then brought into extension and the patella was measured as 28mm. Using the patellar clamp and cut guide, this was resected to a flat surface with at least 13mm of thickness remaining. The size 41 patella fit the best. This was oriented and then clamped into position. The lugs were drilled. The trial components were removed. The final components were opened on the back table. The periosteal and capsular tissues, especially posteriorly, around the knee were then systematically injected with a periarticular cocktail consisting of 246mg of Ropivacaine, 0.5mg of Epinephrine, 0.08mg of Clonidine, and 30mg of Ketorolac, diluted to 100cc. On the back table, with the implants opened, the cement was mixed. One batch of high viscosity cement was prepared with vacuum assistance. After the cement was ready a small amount was placed on the cut surface of the patella and the patellar button was clamped into position and held. While the cement was hardening, the cementless knee components were placed. Starting with the tibial component, the tibia was subluxed anteriorly and the lug holes of the component were lined up. The tibia was then impacted with an impactor and mallet until the tibial component was in contact with the tibia. The final polyethylene component was inserted. Then, the femoral component was inserted. The lug holes were aligned and the component was impacted into position. The knee was irrigated with Irrisept chlorhexidine solution. This was allowed to sit in the knee for 3 minutes and then it was irrigated out with saline. After the cement had finally cured, approximately 15min, the clamp was removed from the patella and the knee was taken through range of motion. The patella was tracking with a no-thumbs technique. The capsule was then reapproximated with a No. 1 Vicryl at multiple locations. The capsule was finally closed with a No. 2 Stratafix, barbed suture. The second dosing of 1g TXA was started. Deep tissues were then reapproximated with 0 Vicryl and 2-0 Vicryl. The skin was closed with a running 3-0 Monocryl in a subcuticular fashion. This was reinforced with skin glue. A Mepilex silver dressing was applied along with a [id number] LION wrap. A CryoCuff was applied. Dell was transferred to the hospital bed without difficulty and suffering no apparent complication. Dell has a good prognosis. Physical therapy will start today and without restrictions, weight-bearing as tolerated. Aspirin 81mg BID will be used for DVT prophylaxis.
== END 2023-07-13 18:34 | disposition home or self-care (01) ==
LOC: SUR 10:26
PROVIDERS: PCP Family Medicine; Visit Provider Student in an Organized Health Care Education/Training Program
PROC: (CPT 27447; principal; 2023-07-13 13:00)
DX: M17.12 Unilateral primary osteoarthritis, left knee (principal); J45.909 Unspecified asthma, uncomplicated; I10 Essential (primary) hypertension; E78.5 Hyperlipidemia, unspecified; H90.3 Sensorineural hearing loss, bilateral
CPT/HCPCS: 27447; C1776; 76942; 97162; 97530; J0690; J1100; J2001; J2405

== ENCOUNTER 2023-07-29 09:24 | Outpatient (CLI) | payer MEDICARE, SELFPAY ==
--- NOTE | 2023-07-29 09:00 | DI.RAD_ITS ---
Exam(s) XR KNEE LT 1V XR STANDING ALIGNMENT EXAM: XR STANDING ALIGNMENT and XR knee LT 1 V CLINICAL HISTORY: 1ST POST OP S/P L TKA. TECHNIQUE: 2D digital imaging was performed. Five images were obtained. COMPARISON: CR XR STANDING ALIGNMENT from 06/27/2023 FINDINGS: BONES: There are degenerative changes seen in the left hip. The patient is now status post left tota l knee replacement. The orthopedic hardware appears in good position. No suspicious lucencies are s een in or about the orthopedic hardware. Mild degenerative changes are seen in the right knee with o steophytes seen. The joint spaces otherwise well maintained. The ankles are well maintained.There i s no significant leg length discrepancy. SOFT TISSUE: Normal. IMPRESSION: 1. Left total knee replacement. 2. Mild degenerative changes in the right knee. DATA REPOSITORY: RADIATION DOSE DELIVERED:
== END 2023-07-29 09:25 | disposition home or self-care (01) ==
LOC: DIORS 09:24
PROVIDERS: PCP Family Medicine; Referring Provider Family Medicine; Visit Provider Student in an Organized Health Care Education/Training Program
DX: Z96.652 Presence of left artificial knee joint (principal); Z47.1 Aftercare following joint replacement surgery
CPT/HCPCS: 73560; 77073

== ENCOUNTER → 2023-08-26 08:38 | Outpatient (BNVA) | payer MEDICARE, SELFPAY | PROVIDERS: PCP Family Medicine; Referring Provider Family Medicine; Visit Provider Student in an Organized Health Care Education/Training Program | DX: Z47.1 Aftercare following joint replacement surgery (principal); Z96.652 Presence of left artificial knee joint ==

== ENCOUNTER 2023-08-29 18:24 | Outpatient (REF) | payer MEDICARE, SELFPAY ==
[2023-08-29 20:00] LABS: Hemoglobin A1C 4.5 % (<5.7)
[2023-08-30 19:14] LABS: PSA, Screening 0.8 ng/mL (<=6.5)
== END 2023-08-29 18:25 | disposition home or self-care (01) ==
LOC: NCHCN 18:24
PROVIDERS: PCP Family Medicine; Visit Provider Family Medicine
DX: Z13.1 Encounter for screening for diabetes mellitus (principal); Z12.5 Encounter for screening for malignant neoplasm of prostate
CPT/HCPCS: 84153; 83036

== ENCOUNTER → 2023-10-10 09:48 | Outpatient (BNVA) | payer MEDICARE, SELFPAY | PROVIDERS: PCP Family Medicine; Visit Provider Student in an Organized Health Care Education/Training Program | DX: Z47.1 Aftercare following joint replacement surgery (principal); Z96.652 Presence of left artificial knee joint ==

== ENCOUNTER → 2024-01-31 13:01 | Outpatient (BNVA) | payer MEDICARE, SELFPAY | PROVIDERS: PCP Family Medicine; Referring Provider Family Medicine; Visit Provider Surgery | DX: Z12.11 Encounter for screening for malignant neoplasm of colon (principal) ==

== ENCOUNTER 2024-02-06 08:30 | Day surgery (SDC) | payer MEDICARE, SELFPAY ==
--- NOTE | 2024-02-05 16:46 | W.PM.DSUDISC ---
Date of service: 02/06/24 Time of Service: 10:40 Discharge Plan Disposition Patient Disposition: Home Condition: Good Discharge Details Reason For Visit: Screening colonoscopy Attending Provider: Wilfrid Nunes Primary Care Provider: Teresa Menchaca Home Meds and New Rx's Prescriptions: Continued Systane Balance 0.6 % drops 1 drp ophthalmic (eye) DAILY PRN omeprazole 20 mg capsule,delayed release(DR/EC) 20 mg PO DAILY PRN atorvastatin 20 mg tablet 10 mg PO DAILY Centrum Silver 1 EACH tablet 1 tab PO DAILY lisinopril 10 mg tablet 5 mg PO DAILY acetaminophen 500 mg tablet 1,000 mg PO TID Qty: 90 3RF Discontinued polyethylene glycol 3350 17 gram/dose powder 238 g PO ONCE Qty: 238 0RF Rx Instructions: take per colonoscopy instructions bisacodyl [Dulcolax (bisacodyl)] 5 mg tablet,delayed release (DR/EC) 5 mg PO ONCE Qty: 4 0RF Rx Instructions: take per colonoscopy instructions Discharge Instructions Instructions: Colon polyps Additional Instructions: Dell, we are able to complete your colonoscopy today without any issues. Your prep was excellent and I could see everything fine. I did find and removed 2 polyps today. Both were small, neither one of them have any features that are worrisome to the naked eye. Similar to your previous experience, these will be sent off for testing, and once we know the nature of the polyps, the office will be in touch with recommendations for the timing of your next colonoscopy. If you have any questions in the meantime, please do not hesitate to call or ask at any point. 1. If tolerated, consume a soft, low fiber diet for 1-2 days. 2[address] Do not drive, drink alcohol, operate machinery, make critical decisions, or do activities that require coordination or balance for 24 hours. 3. Because air was put into your colon during the procedure, expelling air from your rectum (passing gas or farting) is normal. 4. You may not have a bowel movement for 1-3 days because of the colonoscopy prep. This is normal. 5. Go directly to the emergency room if you notice any of the following: Develop chills (warm to touch), or if you have a thermometer and your temperature is above 101 Difficulty breathing or difficultly swallowing Persistent vomiting Severe abdominal pain, other than gas cramps Severe chest pain Black, tarry stools Any bleeding ? exceeding one tablespoon 6. Call your physician if the site where your intravenous was started becomes red, swollen, painful, and warm to touch. 7. Your physician has reviewed your pre-procedure medications. Please continue to take those medications as previously ordered. You will be given specific information/education regarding any changes to your medications before leaving. Activity:: Activity as Tolerated Diet:: As Tolerated Discharge Orders Discharge Orders: Discharge Order (Routine); Ordered 02/05/24 Ordered By: Wilfrid Nunes DS: Diagnosis Discharge Diagnosis (1) Encounter for screening colonoscopy: Status: Acute Asessment and Plan: Follow-up on polypectomy results
--- NOTE | 2024-02-05 16:47 | COLE_ITS ---
Date of service: 02/06/24 Time of Service: 10:42 Colonoscopy Report Date of procedure: 02/06/24 Pre-op diagnosis general: Screening colonoscopy Post-op diagnosis procedure note: other (Colon polyps) Procedure: Colonoscopy with polypectomy Surgeon: Wilfrid Nunes Anesthesia Type: General:No Airway Estimated blood loss (mL): 5 Pathology: other (0.25 cm polyp in the ascending colon, 0.25 cm polyp at 80 cm) Complications: None Disposition: same day Indications: Dell is a 73-year-old male with a history of adenomatous polyps who needs his next screening colonoscopy Prep: Miralax/Dulcolax Procedure Start Time: 09:59 Procedure End Time: 10:32 Retraction Time: 12 Findings: 0.25 cm polyp in the ascending colon, 0.25 cm polyp at 80 cm Procedure Description: After the induction of anesthesia, and with the patient in left lateral dec ubitus position, I began by performing an external anorectal exam.? Perineum and skin were normal, as was the anal verge.? Next, I performed a digital rectal exam.? I did not appreciate any abnormal findings.? Next, I advanced a colonoscope into the rectal vault.? I performed retroflexion.? There are internal hemorrhoids.? Using insufflation, I then advanced the colonoscope beyond the rectal folds and into the sigmoid colon before advancing towards the cecum.? The quality of the prep was excellent.? The scope was noted to be in the cecum by identification of the ileocecal valve and appendiceal orifice.? I then began withdrawing the colonoscope using repeated irrigation as necessary for full evaluation of the colonic mucosa. Within the ascending colon was a 0.25 cm mostly flat polyp. This was removed with cold forceps with minimal bleeding. Around 80 cm from the anal verge I identified a 0.25 cm polyp. ?It appeared flat in character. ?I was able to remove this with a cold forcep polypectomy. ?I examined the site, and there was minimal bleeding. ?Once this was completed, I continued to withdraw the scope and examine the remainder of the colonic mucosa.?Once the scope was withdrawn to the level of the rectum, great care was taken to examine portions of the rectal folds.? Finally, the scope was withdrawn and the patient was brought to the same-day surgery recovery unit as the ane sthetic wore off. ?The findings and instructions were shared with the patient prior to discharge. [place] Bowel Prep [place] Bowel Prep Right Colon: 3 Left Colon: 3 Transverse Colon: 3 Total Score: 9
--- NOTE | 2024-02-06 06:39 | ANES.PREOP_ITS ---
General Info Date of Service Date Performed: 02/06/24 Height: 6 ft 1 in Weight: 92.213 kg Body Mass Index (BMI): 26.8 Surgical Procedure: Operation Date: 02/06/24 09:50 Proposed Procedure Side Surgeon pablo Nunes MD Meds Allergies and Home Medications Allergies Allergy/AdvReac Type Severity Reaction Status Date / Time No Known Allergies Allergy Verified 02/06/24 09:03 Home Medication ?Medication ?Instructions ?Recorded exlmetra-knk-jyrey acid 0.4 1 tab PO DAILY 10/15/13 mg-lycopene 300 mcg-lutein 250 mcg tablet (Centrum Silver) lisinopril 10 mg tablet 5 mg PO DAILY 01/10/20 propylene glycol 0.6 % eye drops 1 drp ophthalmic (eye) DAILY PRN 09/11/21 (Systane Balance) omeprazole 20 mg capsule,delayed 20 mg PO DAILY PRN 06/27/23 release acetaminophen 500 mg tablet 1,000 mg (2 x 500 mg) PO TID #90 07/13/23 tabs atorvastatin 20 mg tablet 10 mg PO DAILY 10/03/23 Current Visit Medications: Current Medications Generic Name Dose Route Start Last Admin Trade Name Freq PRN Reason Stop Dose Admin Hyoscyamine Sulfate 0.125 mg 02/05/24 16:48 Hyoscyamine 0.125 Mg Sl/Oral/Chew SL 03/06/24 16:47 DIRECTED PRN Ringer's Solution 1,000 mls @ 80 mls/hr 02/06/24 06:00 IV 03/04/24 23:59 [facility] IV Miscellaneous Supplies 1 each 02/06/24 06:00 Iv Access IV 03/04/24 23:59 DIRECTED DARRION Ondansetron HCl 4 mg 02/05/24 16:48 Ondansetron 4 Mg/2 Ml Vial IVP 03/06/24 16:47 Q4H PRN PRN Nausea / Vomiting Sodium Chloride 0 ml 02/06/24 06:00 Normal Saline Flush 10 Ml Syr IV 03/04/24 23:59 PRN PRN Sodium Chloride 0 ml 02/06/24 06:00 Normal Saline 10 Ml Vial IJ 03/04/24 23:59 DIRECTED PRN Sterile Water 0 ml 02/06/24 06:00 Water,Injection,Sterile 10 Ml Vial IJ 03/04/24 23:59 DIRECTED PRN PFSH Active Problems Active Problems: Problem Status Onset Code Encounter for screening colonoscopy Acute Z12.11 Asymmetrical sensorineural hearing loss Acute H90.3 History of total left knee replacement Acute 07/13/23 Z96.652 Wears hearing aid in both ears Acute Z97.4 Impairment of speech discrimination Acute H93.299 Recurrent simple right inguinal hernia Acute K40.91 Medical History Medical History Hernia Osteoarthritis Recurrent oral herpes simplex Adenomatous polyps Lower urinary tract symptoms (LUTS) Erectile dysfunction History of basal cell carcinoma BPH (benign prostatic hyperplasia) Asthma Hyperlipidemia Skin lesion Urinary frequency Being tx with tamsulosin Hypertension Calcific Achilles tendinitis of right lower extremity s/p surgical debridement Spermatocele of epididymis, multiple (12/20/17) Pain of left heel Sensorineural hearing loss of both ears Medical History Comments:: screws in R heel Surgical History Surgical History Hx of right inguinal hernia repair (~11/04/21) History of left inguinal hernia repair History of colonoscopy with polypectomy (~01/30/21) History of arthroscopic knee surgery Both knees. Achilles bursitis or tendinitis Right repaired. Calcific Achilles tendinitis of left lower extremity s/p debridement 09/23/2020 Tobacco Smoking/Tobacco Use Status: Never Alcohol Alcohol Intake: current Alcohol intake frequency: a few times a week Alcohol type: beer, wine and hard liquor Substance Use Substance use: Never Substance use type: does not use Vital Signs and Lab Results Vital Signs Most Recent Vital Signs in EMR: Temp Pulse Resp BP Pulse Ox 36.6 C 64 16 123/90 96 02/06/24 08:58 02/06/24 08:58 02/06/24 08:58 02/06/24 08:58 02/06/24 08:58 Lab Results Blood Type / Crossmatch: No Data to Display Complete Blood Count: No Data to Display Complete Metabolic Panel: No Data to Display Liver Function Panel: No Data to Display Coagulation Panel: No Data to Display Cardiac Panel: No Data to Display Arterial Blood Gas: No Data to Display Venous Blood Gas: No Data to Display Pancreas Panel: No Data to Display Thyroid Panel: No Data to Display Infectious Disease: No Data to Display Blood Cultures: No Data to Display Toxicology Panel: No Data to Display Anesthesia Assessment and Plan Anesthesia History Personal History: No History of Anesthesia Complications Family History: No Family History of Anesthesia Complications Exercise Tolerance Exercise Tolerance: Metabolic Equivalents>4 Cardiac & Pulmonary Exam Cardiac Exam: Normal S1/S2 Heart Sounds Pulmonary Exam: Clear Bilateral Breath Sounds Implantable Cardiac Device Does patient have a Pacemaker or an ICD?: No Airway Exam Known Difficult Airway: No Mallampati Class: 2 Mouth Opening: Normal (> 3cm) Thyromental Distance: Greater than 3 cm Neck Range of Motion: Full ROM Neck Circumference: Normal Teeth Condition: Normal Dentition ASA Classification ASA Score: ASA 2 Emergency Case?: No NPO Status NPO Status: NPO Clears >2 hours, Solids >8 hours Anesthesia Plan Resuscitation Status: Full Code Anesthesia Technique: General Anesthesia Airway Planned: Natural Airway Monitors Used: Standard Monitors Preoperative Comments:: 73 yo male for colo. Sig PMHx: asthma, HTN, BPH, never smoker, occ EtOH. Previous Anes: - TKA, spinal, prop, natural airway, no issues. - hernia, LMA 5, no issues. - colo, prop, natural airway, no issues. - Achilles debridement, glide 4 grade 1, easy mask.
[2024-02-06 08:58] VITALS: BP 123/90; PULSE 64; RESP 16; TEMP 36.6; O2SAT 96
[2024-02-06 09:03] VITALS: BMI 26.8
[2024-02-06] MEDS: Lactated Ringers 1,000 ML 80 ML IV (09:29)
--- NOTE | 2024-02-06 10:25 | BOWEL_PTH ---
PATIENT: Dell Rodríguez LOC: [facility] U#:[id number] AGE/SX: 73/M ROOM: RE02/06/[address]: Wilfrid Nunes MD : 1950 BED: DIS: 02/06/2024 SPEC #: [id number] RECD: 02/06/24 12:58 STATUS: [facility]NA CRISTINA RE #: [id number] CLEOPATRA: 02/06/24 10:[address]: Wilfrid Nunes DEPT: Surgical Specimen RECD BY: Katty Vera ENTERED: 02/06/24 13:00 SP TYPE: Bowel OTHR DR: Teresa Menchaca Tissues: 1 - BIOPSY BOWEL 2 - BIOPSY BOWEL Procedures: GROSS AND MICRO LEVEL 4 Comments: [id number]
[2024-02-06 10:34] VITALS: BP 122/70; PULSE 62; RESP 16; TEMP 36.3; O2SAT 97
--- NOTE | 2024-02-06 10:44 | W.ANESPOSTOP ---
Postoperative Evaluation Date, Time and Location Date Performed: 02/06/24 Time Performed: 10:44 Patient Location: Day Surgery Unit Vital Signs Most Recent Imported Vital Signs: Most Recent Vital Signs Temp Pulse Resp BP Pulse Ox 36.3 C L 62 16 122/70 97 02/06/24 10:34 02/06/24 10:34 02/06/24 10:34 02/06/24 10:34 02/06/24 10:34 Pain Score Most Recent Pain Score: Most Recent Pain Score Pain Level 0 02/06/24 10:34 Assessment Mental Status: Awake (Alert & Oriented to Patient Baseline) Airway and Respiratory Function: Patent airway with normal (patient baseline) respiratory exam Cardiovascular Function: Hemodynamically Stable Hydration Status: Adequately Hydrated Nausea & Vomiting: No Nausea or Vomiting Pain: Pt. Denies Any Pain Peripheral Nerve Block: Patient did not receive a nerve block
[2024-02-06 11:05] VITALS: BP 121/82; PULSE 52; RESP 16; TEMP 36.2; O2SAT 98
== END 2024-02-06 11:35 | disposition home or self-care (01) ==
LOC: SUR 08:30
PROVIDERS: PCP Family Medicine; Visit Provider Surgery
PROC: 0DJD8ZZ Inspection of Lower Intestinal Tract, Via Natural or Artificial Opening Endoscopic (ICD-10-PCS; CPT 45378; principal; 2024-02-06 09:45)
DX: Z12.11 Encounter for screening for malignant neoplasm of colon (principal); I10 Essential (primary) hypertension; J45.909 Unspecified asthma, uncomplicated; D12.2 Benign neoplasm of ascending colon; K64.8 Other hemorrhoids; D12.4 Benign neoplasm of descending colon
CPT/HCPCS: 45380; 88305; J2704

== ENCOUNTER 2024-07-16 10:44 | Outpatient (CLI) | payer MEDICARE, SELFPAY ==
--- NOTE | 2024-07-16 09:00 | DI.RAD_ITS ---
Exam(s) XR KNEE LT 2V AP,LAT EXAM: XR KNEE LT 2V AP,LAT CLINICAL HISTORY: F/U LEFT TKA. TECHNIQUE: 2D digital imaging was performed. Three views. COMPARISON: CR XR KNEE LT 3V AP,LAT,CHAVA from 03/14/2023 CR XR STANDING ALIGNMENT from 07/29/2023 CR XR KNEE LT 1V from 07/29/2023 FINDINGS: BONES: Total knee prosthesis. No acute fracture is present. No bony destructive lesion is seen. JOINTS: The knee prosthesis is normally aligned. No joint effusion is seen. SOFT TISSUE: Mild anterior swelling. IMPRESSION: Normal stable appearance of knee prosthesis DATA REPOSITORY: RADIATION DOSE DELIVERED:
== END 2024-07-16 10:45 | disposition home or self-care (01) ==
LOC: DIORS 10:48
PROVIDERS: PCP Family Medicine
DX: Z96.652 Presence of left artificial knee joint (principal); Z47.1 Aftercare following joint replacement surgery
CPT/HCPCS: 99213; 73560

== ENCOUNTER 2024-09-03 12:35 | Outpatient (REF) | payer BC, SELFPAY ==
[2024-09-03 15:49] LABS: Abs Immature Grans 0.01 10^3/uL (0.0-0.06); Absolute Basophil Count 0.06 10^3/uL (0.0-0.2); Absolute Eosinophil Count 0.21 10^3/uL (0.0-0.7); Absolute Lymphocyte Count 1.46 10^3/uL (1.2-3.4); Absolute Monocyte Count 0.48 10^3/uL (0.1-0.8); Absolute Neutrophil Count 3.22 10^3/uL (1.2-6.7); Basophils % 1.1 %; Eosinophils % 3.9 %; HCT 46.1 % (40.0-50.0); HGB 15.5 g/dL (13.5-17.5); Immature Grans % 0.2 %; Lymphocytes % 26.8 %; MCH 31.1 pg (27.0-33.0); MCHC 33.6 % (32.0-36.0); MCV 93 fL (80-95); Monocytes % 8.8 %; Neutrophils % 59.2 %; Platelet Count 212 10^3/uL (130-400); RBC 4.98 10^6/uL (4.36-5.78); RDW 13.2 % (11.8-14.1); RDW-SD 44.3 fL; WBC 5.44 10^3/uL (4.4-10.8)
[2024-09-03 16:12] LABS: ALT 22 U/L (16-63); AST 14 U/L (15-37); Albumin 3.8 g/dL (3.4-5.0); Alkaline Phosphatase 93 U/L (46-116); Anion Gap 7.5 mmol/L (3-11); BUN 23 mg/dL (7-18); Bilirubin, Total 1.34 mg/dL (0.2-1.0); CO2 28.5 mmol/L (21.0-32.0); CREATININE 1.1 mg/dL (0.70-1.30); Calcium 9.2 mg/dL (8.5-10.1); Chloride 109 mmol/L (98-107); Estimated GFR 70.44 (mL/min/1.73m2); Glucose 93 mg/dL (74-106); Potassium 4.6 mmol/L (3.5-5.1); Sodium 145 mmol/L (136-145); TSH (W/Ref FT4) 5.23 uIU/mL (0.36-3.74); Total Protein 6.6 g/dL (6.4-8.2)
[2024-09-03 17:05] LABS: FREE T4 0.78 ng/dL (0.76-1.46)
[2024-09-04 11:38] LABS: IgA 225 mg/dL (85-499); Interpretation (See Note); Tissue Transglutaminase IgA <4.0 CU (<20.0)
== END 2024-09-03 12:36 | disposition home or self-care (01) ==
LOC: NCHCN 12:35
PROVIDERS: PCP Family Medicine; Visit Provider Family Medicine
DX: I10 Essential (primary) hypertension (principal); R61 Generalized hyperhidrosis
CPT/HCPCS: 80053; 82784; 83516; 84439; 84443; 85025

== ENCOUNTER 2025-06-10 10:55 | Outpatient (REF) | payer BC, SELFPAY ==
[2025-06-10 14:56] LABS: Anion Gap 7.1 mmol/L (3-11); BUN 20 mg/dL (9-23); CO2 28.9 mmol/L (20.0-31.0); Calcium 9.1 mg/dL (8.3-10.6); Chloride 109 mmol/L (98-107); Glucose 93 mg/dL (74-106); Potassium 4.3 mmol/L (3.5-5.1); Sodium 145 mmol/L (136-145)
[2025-06-10 14:59] LABS: TSH (W/Ref FT4) 5.34 uIU/mL (0.55-4.78)
== END 2025-06-10 10:56 | disposition home or self-care (01) ==
LOC: NCHCN 10:55
PROVIDERS: PCP Family Medicine; Visit Provider Family Medicine
DX: I10 Essential (primary) hypertension (principal); E03.8 Other specified hypothyroidism
CPT/HCPCS: 80048; 84439; 84443